=== PATIENT | female | born 1965 | race Caucasian/White ===

== ENCOUNTER → 2016-12-22 17:08 | Outpatient (CLI) | payer MEDICARE ==
[~2016-12-22 17:08] MED LIST: ADVAIR 250/501 DISK INH; ASPIRIN81 MG PO; BAYER CHEWABLE81 MG PO; CLOZAPINE200 MG PO; CLOZARIL100 MG PO; COMBIVENT RESPIM4 GM INH; CYCLOBENZAPRINE10 MG PO; DETROL LA4 MG PO; GLUCOPHAGE1000 MG PO; HUMALOG 30100 UNITS/; HYDROCODON-ACE1 EAC7 PO; HYDROCODONE-APA1 TAB PO; IBUPROFEN800 MG PO; INSTA-GLUCOSE31 GM PO; INVOKANA100 MG PO; IPRAT-ALBUT 0.5-3 ML; IPRAT-ALBUT 0.5-3 ML UPD; KADIAN20 MG PO; KLONOPIN1 MG PO; LANOXIN250 MCG PO; LANTUS INSULIN10 ML SC; LANTUS INSULIN10 ML SQ; LEXAPRO10 MG PO; LIPITOR40 MG PO; LISINOPRIL10 MG PO; LOPRESSOR25 MG PO; METOPROLOL TART50 MG PO; NEURONTIN 300300 MG PO; PEPCID20 MG PO; PLAVIX75 MG PO; PREDNISONE20 MG PO; PRILOSEC20 MG PO; PROAIR HFA8.5 GM INH; SYMBICORT 16010.2 GM INH; ULTRAM50 MG PO; WELLBUTRIN XL150 M1 PO
== END | disposition home or self-care (01) ==
LOC: D.MAMMO 11:00
DX: Z12.31 Encounter for screening mammogram for malignant neoplasm of breast (principal)

== ENCOUNTER 2017-01-12 12:08 | Emergency (ER) | payer MEDICARE | END 2017-01-12 13:51 | disposition home or self-care (01) | LOC: D.ER 12:08 | DX: J20.9 Acute bronchitis, unspecified (principal); J06.9 Acute upper respiratory infection, unspecified; J01.90 Acute sinusitis, unspecified; J45.909 Unspecified asthma, uncomplicated; E11.9 Type 2 diabetes mellitus without complications; F17.200 Nicotine dependence, unspecified, uncomplicated ==

== ENCOUNTER 2017-06-26 13:34 | Emergency (ER) | payer MEDICARE ==
[2017-06-26 15:13] LABS: BASOPHILS 0.1 % (0-2); EOSINOPHILS 3.7 % (0-7); HEMATOCRIT 39.1 % (36.0-48.0); HEMOGLOBIN 13.3 g/dL (12-16); IMMATURE GRANULOCYTES 0.3 % (0-5); LYMPHOCYTES 18.6 % (15-50); MCH 29.9 pg (26.0-34.0); MCV 87.9 fL (80.0-100.0); MEAN PLATELET VOLUME 9.1 fL (7.4-10.4); MONOCYTES 6.7 % (2-11); NEUTROPHILS 70.6 % (40-80); PLATELET COUNT 260 10x3/uL (130-400); RBC 4.45 10x6/uL (4.00-5.40); RDW 13.4 % (11.5-14.5); WBC 8.7 10x3/uL (4.8-10.8)
[2017-06-26 15:35] LABS: ALBUMIN 3.1 g/dL (3.4-5.0); ALKALINE PHOSPHATASE 143 U/L (46-116); ALT (SGPT) 44 U/L (10-68); BILIRUBIN - TOTAL 0.21 mg/dL (0.2-1.3); CALC OSMOLALITY 285 mosm/kg (275-300); CALCIUM 8.8 mg/dL (8.5-10.1); CARBON DIOXIDE 26.8 mmol/L (21.0-32.0); CHLORIDE - SERUM 101 mmol/L (98-107); CREATININE - SERUM 0.8 mg/dL (0.6-1.3); POTASSIUM - SERUM 3.6 mmol/L (3.5-5.1); PROTEIN - SERUM 7.8 g/dL (6.4-8.2); SODIUM 137 mmol/L (136-145); UREA NITROGEN 10 mg/dL (7-18); eGFR NON AFRICAN AMERICAN 79 mL/min (90-120)
[2017-06-26 15:38] LABS: GLUCOSE 329 mg/dL (74-106)
== END 2017-06-26 16:19 | disposition home or self-care (01) ==
LOC: D.ER 13:34
PROVIDERS: Emergency Medicine
DX: J44.1 Chronic obstructive pulmonary disease with (acute) exacerbation (principal); F17.200 Nicotine dependence, unspecified, uncomplicated

== ENCOUNTER 2017-11-03 21:03 | Emergency (ER) | payer MEDICARE ==
[2017-11-03 21:51] LABS: APPEARANCE CLEAR (CLEAR); BILIRUBIN NEGATIVE (NEGATIVE); COLOR YELLOW (YELLOW); GLUCOSE 1000 mg/dL (NEGATIVE); KETONE NEGATIVE (NEGATIVE); NITRITE NEGATIVE (NEGATIVE); PROTEIN NEGATIVE (NEGATIVE); UROBILINOGEN NORMAL (NORMAL)
[2017-11-03 22:06] LABS: BASOPHILS 0.4 % (0-2); EOSINOPHILS 5.1 % (0-7); HEMATOCRIT 35.7 % (36.0-48.0); HEMOGLOBIN 11.9 g/dL (12-16); IMMATURE GRANULOCYTES 0.2 % (0-5); LYMPHOCYTES 23.5 % (15-50); MCH 29.4 pg (26.0-34.0); MCHC 33.3 g/dL (31.0-37.0); MCV 88.1 fL (80.0-100.0); MEAN PLATELET VOLUME 9.2 fL (7.4-10.4); MONOCYTES 6.1 % (2-11); NEUTROPHILS 64.7 % (40-80); PLATELET COUNT 262 10x3/uL (130-400); RBC 4.05 10x6/uL (4.00-5.40); RDW 13.2 % (11.5-14.5); WBC 8.5 10x3/uL (4.8-10.8)
[2017-11-03 23:17] LABS: ALBUMIN 3.1 g/dL (3.4-5.0); ALKALINE PHOSPHATASE 125 U/L (46-116); ALT (SGPT) 29 U/L (10-68); BILIRUBIN - TOTAL 0.22 mg/dL (0.2-1.3); CALC OSMOLALITY 282 mosm/kg (275-300); CALCIUM 9.1 mg/dL (8.5-10.1); CARBON DIOXIDE 24.8 mmol/L (21.0-32.0); CHLORIDE - SERUM 101 mmol/L (98-107); CREATININE - SERUM 0.7 mg/dL (0.6-1.3); GLUCOSE 339 mg/dL (74-106); POTASSIUM - SERUM 3.6 mmol/L (3.5-5.1); PROTEIN - SERUM 7.4 g/dL (6.4-8.2); SODIUM 135 mmol/L (136-145); UREA NITROGEN 13 mg/dL (7-18); eGFR NON AFRICAN AMERICAN > 90 mL/min (90-120)
[2017-11-03 23:20] LABS: TROPONIN-I < 0.017 ng/mL (0.000-0.060)
== END 2017-11-04 00:13 | disposition home or self-care (01) ==
LOC: D.ER 21:03
PROVIDERS: Emergency Medicine
DX: J44.1 Chronic obstructive pulmonary disease with (acute) exacerbation (principal); R00.0 Tachycardia, unspecified

== ENCOUNTER → 2017-12-03 14:04 | Outpatient (CLI) | payer MEDICARE | END | disposition home or self-care (01) | LOC: D.RAD 14:04 | DX: M25.511 Pain in right shoulder (principal) ==

== ENCOUNTER 2018-01-13 22:55 | Emergency (ER) | payer MEDICARE ==
[2018-01-13 23:54] LABS: LYMPHOCYTES 17.1 % (15-50); MCH 27.8 pg (26.0-34.0); MCHC 33.3 g/dL (31.0-37.0); MCV 83.5 fL (80.0-100.0); MEAN PLATELET VOLUME 8.4 fL (7.4-10.4); NEUTROPHILS 72.1 % (40-80); PLATELET COUNT 237 10x3/uL (130-400); RBC 4.67 10x6/uL (4.00-5.40); RDW 13.5 % (11.5-14.5); WBC 8.4 10x3/uL (4.8-10.8)
[2018-01-13 23:55] LABS: APPEARANCE CLEAR (CLEAR); BILIRUBIN NEGATIVE (NEGATIVE); COLOR YELLOW (YELLOW); GLUCOSE 1000 mg/dL (NEGATIVE); KETONE NEGATIVE (NEGATIVE); NITRITE NEGATIVE (NEGATIVE); PROTEIN NEGATIVE (NEGATIVE); SPECIFIC GRAVITY 1.015 (1.005-1.020); UROBILINOGEN NORMAL (NORMAL)
[2018-01-14 00:01] LABS: ALBUMIN 3.5 g/dL (3.4-5.0); ALKALINE PHOSPHATASE 96 U/L (46-116); ALT (SGPT) 28 U/L (10-68); CALC OSMOLALITY 284 mosm/kg (275-300); CALCIUM 9.6 mg/dL (8.5-10.1); CARBON DIOXIDE 25.8 mmol/L (21.0-32.0); CHLORIDE - SERUM 102 mmol/L (98-107); CREATININE - SERUM 0.8 mg/dL (0.6-1.3); POTASSIUM - SERUM 4.1 mmol/L (3.5-5.1); PROTEIN - SERUM 7.6 g/dL (6.4-8.2); SODIUM 139 mmol/L (136-145); UREA NITROGEN 22 mg/dL (7-18); eGFR NON AFRICAN AMERICAN 79 mL/min (90-120)
[2018-01-14 00:03] LABS: GLUCOSE 168 mg/dL (74-106)
[2018-01-14 00:18] LABS: DIGOXIN < 0.20 ng/mL (0.90-2.00)
== END 2018-01-14 00:56 | disposition home or self-care (01) ==
LOC: D.ER 22:55
PROVIDERS: Emergency Medicine
DX: R55 Syncope and collapse (principal); F17.200 Nicotine dependence, unspecified, uncomplicated; R00.0 Tachycardia, unspecified

== ENCOUNTER → 2018-01-14 12:30 | Outpatient (CLI) | payer MEDICARE ==
[2018-01-14 13:33] LABS: HEMATOCRIT 39.5 % (36.0-48.0); LYMPHOCYTES 17.7 % (15-50); MCH 27.6 pg (26.0-34.0); MCHC 32.9 g/dL (31.0-37.0); MCV 83.9 fL (80.0-100.0); MEAN PLATELET VOLUME 8.6 fL (7.4-10.4); NEUTROPHILS 70.6 % (40-80); PLATELET COUNT 247 10x3/uL (130-400); RBC 4.71 10x6/uL (4.00-5.40); WBC 8.3 10x3/uL (4.8-10.8)
[2018-01-14 13:57] LABS: CHOL - HDL RATIO 5.5 ratio (2.3-4.1); LDL-HDL RATIO 3.2 ratio (1.5-3.5); THYROID STIMULATING HORMONE 0.96 uIU/mL (0.36-3.74)
[2018-01-15 10:17] LABS: C-PEPTIDE 4.7 ng/mL (1.1-4.4); VITAMIN D 25 HYDROXY 14.6 ng/mL (30.0-100.0)
== END | disposition home or self-care (01) ==
LOC: D.LAB 12:30
PROVIDERS: Family Medicine
DX: E11.9 Type 2 diabetes mellitus without complications (principal); Z00.00 Encounter for general adult medical examination without abnormal findings; I10 Essential (primary) hypertension; E66.9 Obesity, unspecified; E55.9 Vitamin D deficiency, unspecified; F20.9 Schizophrenia, unspecified; R19.7 Diarrhea, unspecified

== ENCOUNTER → 2018-03-11 09:59 | Outpatient (CLI) | payer MEDICARE ==
[2018-03-11 10:19] LABS: BASOPHILS 0.4 % (0-2); EOSINOPHILS 4.7 % (0-7); HEMATOCRIT 44.3 % (36.0-48.0); HEMOGLOBIN 14.2 g/dL (12-16); IMMATURE GRANULOCYTES 0.1 % (0-5); LYMPHOCYTES 22.9 % (15-50); MCHC 32.1 g/dL (31.0-37.0); MCV 90.6 fL (80.0-100.0); MEAN PLATELET VOLUME 10.1 fL (7.4-10.4); MONOCYTES 5.1 % (2-11); NEUTROPHILS 66.8 % (40-80); PLATELET COUNT 256 10x3/uL (130-400); RBC 4.89 10x6/uL (4.00-5.40); RDW 15.8 % (11.5-14.5)
[2018-03-11 10:34] LABS: ALBUMIN 3.4 g/dL (3.4-5.0); ANION GAP 19.9 mmol/L (8-16); BILIRUBIN - TOTAL 0.4 mg/dL (0.2-1.3); CALCIUM 9.3 mg/dL (8.5-10.1); MAGNESIUM - SERUM 2.2 mg/dL (1.8-2.4); POTASSIUM - SERUM 3.9 mmol/L (3.5-5.1); PROTEIN - SERUM 8.4 g/dL (6.4-8.2)
== END | disposition home or self-care (01) ==
LOC: D.LABREF 09:59
PROVIDERS: Family Medicine
DX: J44.9 Chronic obstructive pulmonary disease, unspecified (principal); E11.9 Type 2 diabetes mellitus without complications

== ENCOUNTER → 2018-08-19 14:49 | Outpatient (CLI) | payer MEDICARE ==
[2018-08-19 15:35] LABS: HEMATOCRIT 36.3 % (36.0-48.0); HEMOGLOBIN 12.2 g/dL (12-16); MCH 29.8 pg (26.0-34.0); MCHC 33.6 g/dL (31.0-37.0); MCV 88.8 fL (80.0-100.0); MEAN PLATELET VOLUME 8.6 fL (7.4-10.4); PLATELET COUNT 295 10x3/uL (130-400); RBC 4.09 10x6/uL (4.00-5.40); RDW 13.9 % (11.5-14.5)
[2018-08-19 15:55] LABS: BASOPHILS 1 % (0-2); EOSINOPHILS 3 % (0-7); LYMPHOCYTES 25 % (15-50); MONOCYTES 6 % (2-11); NEUTROPHILS 64 % (40-80); PLATELET ESTIMATE NORMAL
[2018-08-19 15:56] LABS: ALBUMIN 3.3 g/dL (3.4-5.0); ALKALINE PHOSPHATASE 96 U/L (46-116); ALT (SGPT) 20 U/L (10-68); BILIRUBIN - TOTAL 0.21 mg/dL (0.2-1.3); CALC OSMOLALITY 277 mosm/kg (275-300); CALCIUM 9.2 mg/dL (8.5-10.1); CARBON DIOXIDE 30.5 mmol/L (21.0-32.0); CHLORIDE - SERUM 98 mmol/L (98-107); CREATININE - SERUM 0.8 mg/dL (0.6-1.3); PLATELET MORPHOLOGY NORMAL PLT MORPH; POTASSIUM - SERUM 4.5 mmol/L (3.5-5.1); PROTEIN - SERUM 7.7 g/dL (6.4-8.2); SODIUM 135 mmol/L (136-145); THYROID STIMULATING HORMONE 1.18 uIU/mL (0.36-3.74); UREA NITROGEN 6 mg/dL (7-18); eGFR NON AFRICAN AMERICAN 79 mL/min (90-120)
[2018-08-19 16:10] LABS: GLUCOSE 279 mg/dL (74-106)
== END | disposition home or self-care (01) ==
LOC: D.LAB 14:49
PROVIDERS: Family Medicine
DX: R05 Cough (principal); M25.511 Pain in right shoulder; I25.10 Atherosclerotic heart disease of native coronary artery without angina pectoris; J44.9 Chronic obstructive pulmonary disease, unspecified; Z91.81 History of falling; E11.9 Type 2 diabetes mellitus without complications; R42 Dizziness and giddiness; M75.80 Other shoulder lesions, unspecified shoulder; E78.5 Hyperlipidemia, unspecified

== ENCOUNTER 2019-01-20 11:48 | Emergency (ER) | payer MEDICARE ==
[~2019-01-20] VITALS: Ht 162.6 cm; Wt 100.0 kg
[2019-01-20 11:54] VITALS: Ht 162.6 cm; Wt 100.0 kg
[2019-01-20 12:50] LABS: BASOPHILS 0.1 % (0-2); HEMATOCRIT 37.3 % (36.0-48.0); HEMOGLOBIN 12.2 g/dL (12-16); IMMATURE GRANULOCYTES 0.5 % (0-5); MCH 28.8 pg (26.0-34.0); MCHC 32.7 g/dL (31.0-37.0); MCV 88.2 fL (80.0-100.0); MEAN PLATELET VOLUME 9.1 fL (7.4-10.4); MONOCYTES 4.2 % (2-11); NEUTROPHILS 91.2 % (40-80); RBC 4.23 10x6/uL (4.00-5.40); RDW 14.3 % (11.5-14.5); WBC 10.4 10x3/uL (4.8-10.8)
[2019-01-20 12:52] LABS: PLATELET COUNT 229 10x3/uL (130-400)
[2019-01-20 13:06] LABS: ALBUMIN 3.2 g/dL (3.4-5.0); ANION GAP 11.1 mmol/L (8-16); BILIRUBIN - TOTAL 0.27 mg/dL (0.2-1.3); CALCIUM 8.4 mg/dL (8.5-10.1); CARBON DIOXIDE 27.8 mmol/L (21.0-32.0); CREATININE - SERUM 1.4 mg/dL (0.6-1.3); POTASSIUM - SERUM 3.9 mmol/L (3.5-5.1); PROTEIN - SERUM 7.6 g/dL (6.4-8.2)
[2019-01-20 13:15] LABS: THYROID STIMULATING HORMONE 0.48 uIU/mL (0.36-3.74)
[2019-01-20 13:46] LABS: APPEARANCE HAZY (CLEAR); BILIRUBIN NEGATIVE (NEGATIVE); COLOR YELLOW (YELLOW); GLUCOSE 500 mg/dL (NEGATIVE); KETONE NEGATIVE (NEGATIVE); NITRITE POSITIVE (NEGATIVE); PROTEIN TRACE mg/dL (NEGATIVE); UROBILINOGEN NORMAL (NORMAL)
[2019-01-20 13:47] LABS: RED CELLS - URINE 0-5 /hpf (0-5)
[2019-01-20 13:48] LABS: HYALINE CAST 0-5 /lpf (NONE SEEN)
[2019-01-20 13:49] LABS: BACTERIA MODERATE /hpf (NONE SEEN)
[2019-01-20] MEDS ORDERED: OMNICEF300 MG PO (16:20)
[2019-01-20 18:05] VITALS: BP 145/65
== END 2019-01-20 18:05 | disposition home or self-care (01) ==
LOC: D.ER 11:48
PROVIDERS: Family Medicine
DX: N39.0 Urinary tract infection, site not specified (principal); E86.0 Dehydration; R42 Dizziness and giddiness; F17.290 Nicotine dependence, other tobacco product, uncomplicated; Z86.73 Personal history of transient ischemic attack (TIA), and cerebral infarction without residual deficits; E11.9 Type 2 diabetes mellitus without complications; J44.9 Chronic obstructive pulmonary disease, unspecified; M19.90 Unspecified osteoarthritis, unspecified site; W08.XXXA Fall from other furniture, initial encounter

== ENCOUNTER 2019-02-10 12:58 | Inpatient (IN) | payer MEDICARE ==
[~2019-02-10 12:58] MED LIST changes: +OMNICEF300 MG PO
[2019-02-10] MEDS ORDERED: DETROL LA2 MG PO (13:05)
[2019-02-10 13:36] LABS: BASOPHILS 0.3 % (0-2); EOSINOPHILS 1.5 % (0-7); HEMATOCRIT 37.4 % (36.0-48.0); HEMOGLOBIN 12.3 g/dL (12-16); IMMATURE GRANULOCYTES 0.2 % (0-5); LYMPHOCYTES 13.9 % (15-50); MCH 28.4 pg (26.0-34.0); MCHC 32.9 g/dL (31.0-37.0); MCV 86.4 fL (80.0-100.0); MEAN PLATELET VOLUME 8.7 fL (7.4-10.4); MONOCYTES 6.5 % (2-11); NEUTROPHILS 77.6 % (40-80); PLATELET COUNT 238 10x3/uL (130-400); RBC 4.33 10x6/uL (4.00-5.40); RDW 14.4 % (11.5-14.5); WBC 11.6 10x3/uL (4.8-10.8)
[2019-02-10 13:50] LABS: ALBUMIN 2.8 g/dL (3.4-5.0); ALKALINE PHOSPHATASE 94 U/L (46-116); ALT (SGPT) 19 U/L (10-68); BILIRUBIN - TOTAL 0.27 mg/dL (0.2-1.3); CALC OSMOLALITY 286 mosm/kg (275-300); CALCIUM 8.5 mg/dL (8.5-10.1); CHLORIDE - SERUM 102 mmol/L (98-107); CREATININE - SERUM 0.9 mg/dL (0.6-1.3); GLUCOSE 237 mg/dL (74-106); POTASSIUM - SERUM 3.1 mmol/L (3.5-5.1); PROTEIN - SERUM 7.8 g/dL (6.4-8.2); SODIUM 141 mmol/L (136-145); UREA NITROGEN 8 mg/dL (7-18); eGFR NON AFRICAN AMERICAN 69 mL/min (90-120)
[2019-02-10 14:02] LABS: CKMB 1.8 U/L (0.0-3.6); CREATINE KINASE 182 UL (21-215); PRO BNP 155 pg/mL (0-125)
[2019-02-10 14:14] VITALS: BP 121/51
[2019-02-10 14:16] LABS: TROPONIN-I < 0.017 ng/mL (0.000-0.060)
[2019-02-10 18:19] VITALS: BP 169/79; BMI 37.8
[2019-02-10 20:52] VITALS: BP 166/78
[2019-02-11 01:02] VITALS: BP 147/74
[2019-02-11 04:06] LABS: BASOPHILS 0.1 % (0-2); EOSINOPHILS 0 % (0-7); HEMATOCRIT 37.6 % (36.0-48.0); HEMOGLOBIN 12.8 g/dL (12-16); IMMATURE GRANULOCYTES 0.3 % (0-5); MCH 28.8 pg (26.0-34.0); MCV 84.5 fL (80.0-100.0); MEAN PLATELET VOLUME 8.7 fL (7.4-10.4); MONOCYTES 1.3 % (2-11); NEUTROPHILS 89.3 % (40-80); PLATELET COUNT 253 10x3/uL (130-400); RBC 4.45 10x6/uL (4.00-5.40); RDW 14.3 % (11.5-14.5); WBC 11.2 10x3/uL (4.8-10.8)
[2019-02-11 04:41] LABS: ALBUMIN 2.6 g/dL (3.4-5.0); ALKALINE PHOSPHATASE 99 U/L (46-116); ALT (SGPT) 22 U/L (10-68); BILIRUBIN - TOTAL 0.21 mg/dL (0.2-1.3); CALC OSMOLALITY 290 mosm/kg (275-300); CALCIUM 8.4 mg/dL (8.5-10.1); CARBON DIOXIDE 30.6 mmol/L (21.0-32.0); CHLORIDE - SERUM 104 mmol/L (98-107); CHOL - HDL RATIO 3.3 ratio (2.3-4.1); CHOLESTEROL, TOTAL 152 mg/dL (0-200); CREATININE - SERUM 0.7 mg/dL (0.6-1.3); GLUCOSE 266 mg/dL (74-106); HDL CHOLESTEROL 46 mg/dL (32-96); LDL CHOLESTEROL 90 mg/dL (0-100); PROTEIN - SERUM 7.8 g/dL (6.4-8.2); SODIUM 142 mmol/L (136-145); THYROID STIMULATING HORMONE 0.34 uIU/mL (0.36-3.74); TRIGLYCERIDE 84 mg/dL (30-200); UREA NITROGEN 9 mg/dL (7-18); eGFR NON AFRICAN AMERICAN > 90 mL/min (90-120)
[2019-02-11 04:54] VITALS: BP 137/72
[2019-02-11 08:44] VITALS: BP 143/74
[2019-02-11 13:09] VITALS: BMI 37.7
[2019-02-11 16:17] VITALS: BP 138/76
[2019-02-11 20:00] VITALS: BP 109/76
[2019-02-11 22:19] LABS: EOS BF 2 %; MACROPHAGES BF 52 %; MESOTHELIALS BF 8 %; NEUT - BF 14 %
[2019-02-11 22:22] LABS: EOS BF 34 %; MACROPHAGES BF 33 %; MESOTHELIALS BF 6 %; NEUT - BF 12 %
[2019-02-12] VITALS: BP 110/68
[2019-02-12 03:00] VITALS: BP 115/56
[2019-02-12 09:50] VITALS: BP 153/87
[2019-02-12 14:41] VITALS: BP 113/77
[2019-02-12 17:12] VITALS: BP 149/88
[2019-02-12 19:37] VITALS: BP 169/91
[2019-02-13 00:56] VITALS: BP 150/73
[2019-02-13 05:52] VITALS: BP 154/90
[2019-02-13 08:21] VITALS: BP 148/82
[2019-02-13 13:06] LABS: ACID FAST SMEAR Negative (()); AFB SPECIMEN PROCESSING Concentration (())
[2019-02-13 14:23] VITALS: BP 101/68
[2019-02-13 15:55] VITALS: BP 125/68
[2019-02-13 20:00] VITALS: BP 167/83
[2019-02-14] VITALS: BP 136/69
[2019-02-14 03:00] VITALS: BP 130/71
[2019-02-14 05:05] LABS: HEMATOCRIT 34.4 % (36.0-48.0); HEMOGLOBIN 11.8 g/dL (12-16); LYMPHOCYTES 11.4 % (15-50); MCH 29.3 pg (26.0-34.0); MCHC 34.3 g/dL (31.0-37.0); MCV 85.4 fL (80.0-100.0); MEAN PLATELET VOLUME 8.3 fL (7.4-10.4); NEUTROPHILS 84.4 % (40-80); PLATELET COUNT 278 10x3/uL (130-400); RBC 4.03 10x6/uL (4.00-5.40); RDW 14.5 % (11.5-14.5); WBC 13.7 10x3/uL (4.8-10.8)
[2019-02-14] MEDS ORDERED: Xarelto PO (08:33)
[2019-02-14] MEDS ORDERED: LEVAQUIN750 MG PO (08:33)
[2019-02-14] MEDS ORDERED: ATROVENT 0.02%2.5 ML UPD (08:33)
[2019-02-14] MEDS ORDERED: ASPIRIN81 MG PO (08:34)
[2019-02-14] MEDS ORDERED: INVOKANA100 MG PO (08:35)
[2019-02-14] MEDS ORDERED: FLORAJEN3 CAPS460 MG PT (08:35)
[2019-02-14] MEDS ORDERED: SENNA8.6 MG PO (08:36)
[2019-02-14 09:19] VITALS: BP 193/101
--- NOTE | 2019-02-14 10:01 | MORECARE ---
CASE MANAGEMENT DISCHARGE SUMMARY PATIENT: ASAD CHO UNIT: [id number] ADM DATE: 02/10/19 AGE: 53 : 63 SEX: F ROOM/BED: D.2218 AUTHOR: MARLENA WALSH PHYSICIAN: REFERRING PHYSICIAN: BERT DICKINSON MD DATE OF SERVICE: 02/14/19 Discharge Plan Patient Name: ASAD CHO Facility: [facility]:[place] : 1965 Planned Disposition: Home with Home Health Anticipated Discharge Date: Discharge Date: Expected LOS: Initial Reviewer: [email or web address] Initial Review Date: 02/10/2019 Generated: 02/14/19 11:01 am DCPIA - Discharge Planning Initial Assessment Updated by [email or web address]: Lucretia Dean on 02/14/19 9:58 am * Is the patient Alert and Oriented? Yes * How many steps to enter\exit or inside your home? elevator * PCP Kelly * [facility] * Preadmission Environment Home Alone * ADLs Independent * Equipment Glucometer Grab Bars Nebulizer Rolling Walker * List name and contact numbers for known caregivers / representatives who currently or will assist patient after discharge: Randolph Rodriguez * Verbal permission to speak to the caregivers and representatives has been obtained from the patient. N/A * Community resources currently utilized Home Health * Please name any agencies selected above. Current with [place] * Additional services required to return to the preadmission environment? No * Can the patient safely return to the preadmission environment? Yes * Has this patient been hospitalized within the prior 30 days at any hospital? Yes Coverage Notice Reviewer: [email or web address] - Lucretia Dean Notice Issued Date-Time: 02/14/2019 9:50 Notice Type: IM Discharge Notice Notice Delivered To: Patient Relationship to Patient: Cage Loader Name: Delivery Method: HAND - Hand Delivered Jelly Days: Prior Verbal Notification: Recipient Understood Notice: Yes Recipient Signature: Yes Med Rec Note Co-signed by Attending: Coverage Notice Comment: Patient Name: ASAD CHO Page [id number] at 1001 All edits/amendments must be made on the electronic document DICTATION DATE: 02/14/19999 [employer] ED TEACHER: DM 02/14/19 1000 RPT#: [id number] DC DATE: STATUS: ADM IN [facility] [address] [place] [address] END OF REPORT
--- NOTE | 2019-02-14 10:08 | MORECARE ---
CASE MANAGEMENT DISCHARGE SUMMARY PATIENT: ASAD CHO UNIT: [id number] ADM DATE: 02/10/19 AGE: 53 : 63 SEX: F ROOM/BED: D.2218 AUTHOR: MARLENA WALSH PHYSICIAN: REFERRING PHYSICIAN: BERT DICKINSON MD DATE OF SERVICE: 02/14/19 Discharge Plan Patient Name: ASAD CHO Facility: [facility]:[place] : 1965 Planned Disposition: Home with Home Health Anticipated Discharge Date: Discharge Date: Expected LOS: Initial Reviewer: [email or web address] Initial Review Date: 02/10/2019 Generated: 02/14/19 11:08 am Comments DCP- Discharge Planning Updated by [id number]: Lucretia Dena on 02/14/19 9:[address] Patient Name: ASAD CHO Admission Status: ER Accout number: [id number] Admission Date: 02-10-2019 : 1965 Admission Diagnosis: Attending: BERT DICKINSON Current LOS: 4 Anticipated DC Date: Planned Disposition: Home with Home Health Primary Insurance: MEDICARE A & B Discharge Planning Comments: Cm met with patient to assess discharge planning needs. Patient stated that she lives independent at home where she has help by her son and friend. Her stock roller will be taking her home today. She has a Nebulizer, walker, grab bars in shower at home. There is also an elevator at home. She is current with [facility]. She states her home is safe to return. IMM served and explained. Patient will be discharging home today. CM to follow as needed Outside Installation Machinist: Lucretia Dean DCPIA - Discharge Planning Initial Assessment Updated by [email or web address]: Lucretia Dean on 02/14/19 9:58 am * Is the patient Alert and Oriented? Yes * How many steps to enter\exit or inside your home? elevator * PCP Kelly * Pharmacy [facility] * Preadmission Environment Home Alone * ADLs Independent * Equipment Glucometer Grab Bars Nebulizer Rolling Walker * List name and contact numbers for known caregivers / representatives who currently or will assist patient after discharge: Randolph Rodriguez * Verbal permission to speak to the caregivers and representatives has been obtained from the patient. N/A * Community resources currently utilized Home Health * Please name any agencies selected above. Current with [facility] * Additional services required to return to the preadmission environment? No * Can the patient safely return to the preadmission environment? Yes * Has this patient been hospitalized within the prior 30 days at any hospital? Yes Coverage Notice Reviewer: [email or web address] Albina Dean Notice Issued Date-Time: 02/14/2019 9:50 Notice Type: IM Discharge Notice Notice Delivered To: Patient Relationship to Patient: Media Relations Director Name: Delivery Method: HAND - Hand Delivered Jelly Days: Prior Verbal Notification: Recipient Understood Notice: Yes Recipient Signature: Yes Med Rec Note Co-signed by Attending: Coverage Notice Comment: Last DP export: 02/14/19 9:01 a Patient Name: ASAD CHO Page [id number] at 1008 All edits/amendments must be made on the electronic document DICTATION DATE: 02/14/19 1008 MANAGER TRUCK: GET 02/14/19 1008 RPT#: [id number] DC DATE: STATUS: ADM IN [facility] [address] [place] [address] END OF REPORT
[2019-02-14 14:09] LABS: FUNGUS STAIN Final report (())
--- NOTE | 2019-02-14 15:51 | MORECARE ---
CASE MANAGEMENT DISCHARGE SUMMARY PATIENT: ASAD CHO UNIT: [id number] ADM DATE: 02/10/19 AGE: 53 : 63 SEX: F ROOM/BED: D.2218 AUTHOR: MARLENA WALSH PHYSICIAN: REFERRING PHYSICIAN: BERT DICKINSON MD DATE OF SERVICE: 02/14/19 Discharge Plan Patient Name: ASAD CHO Facility: [facility]:[place] : 1965 Planned Disposition: Home with Home Health Anticipated Discharge Date: Discharge Date: 02/14/2019 Expected LOS: Initial Reviewer: [email or web address] Initial Review Date: 02/10/2019 Generated: 02/14/19 4:51 pm Comments DCP- Discharge Planning Updated by [email or web address]: Lucretia Dean on 02/14/19 9:[address] Patient Name: ASAD CHO Admission Status: ER Accout number: [id number] Admission Date: 02-10-2019 : 1965 Admission Diagnosis: Attending: BERT DICKINSON Current LOS: 4 Anticipated DC Date: Planned Disposition: Home with Home Health Primary Insurance: MEDICARE A & B Discharge Planning Comments: Cm met with patient to assess discharge planning needs. Patient stated that she lives independent at home where she has help by her son and friend. Her certified detention deputy will be taking her home today. She has a Nebulizer, walker, grab bars in shower at home. There is also an elevator at home. She is current with [facility]. She states her home is safe to return. IMM served and explained. Patient will be discharging home today. CM to follow as needed Surgeon'S Assistant: Lucretia Dean DCPIA - Discharge Planning Initial Assessment Updated by [email or web address]: Lucretia Dean on 02/14/19 9:58 am * Is the patient Alert and Oriented? Yes * How many steps to enter\exit or inside your home? elevator * PCP Kelly * Pharmacy [facility] * Preadmission Environment Home Alone * ADLs Independent * Equipment Glucometer Grab Bars Nebulizer Rolling Walker * List name and contact numbers for known caregivers / representatives who currently or will assist patient after discharge: Randolph Rodriguez * Verbal permission to speak to the caregivers and representatives has been obtained from the patient. N/A * Community resources currently utilized Home Health * Please name any agencies selected above. Current with [facility] * Additional services required to return to the preadmission environment? No * Can the patient safely return to the preadmission environment? Yes * Has this patient been hospitalized within the prior 30 days at any hospital? Yes External Providers External Provider: [facility] Next Contact Date: Service Request Date: Service Type: Resolution: Reviewer: Comments: Coverage Notice Reviewer: [email or web address] Albina Dean Notice Issued Date-Time: 02/14/2019 9:50 Notice Type: IM Discharge Notice Notice Delivered To: Patient Relationship to Patient: Pattern Duplicator Name: Delivery Method: HAND - Hand Delivered Jelly Days: Prior Verbal Notification: Recipient Understood Notice: Yes Recipient Signature: Yes Med Rec Note Co-signed by Attending: Coverage Notice Comment: Last DP export: 02/14/19 9:08 a Patient Name: ASAD CHO Page [id number] at 1551 All edits/amendments must be made on the electronic document DICTATION DATE: 02/14/19 1551 CUSTOMER CARE VOICE CONSULTANT: GET 02/14/19 1551 RPT#: [id number] DC DATE:02/14/19 STATUS: DIS IN [facility] [address] [place] [address] END OF REPORT
== END 2019-02-14 12:54 | disposition home health service (06) | DRG 190 ==
LOC: D.ER 12:58 → D.EDHOLD 14:40 → D.MS 15:16
PROVIDERS: Emergency Medicine; Internal Medicine Pulmonary Disease; ADMIT Family Medicine
PROC: 0B9J8ZX Drainage of Left Lower Lung Lobe, Via Natural or Artificial Opening Endoscopic, Diagnostic (ICD-10-PCS; principal; 2019-02-10)
PROC: 0B9F8ZX Drainage of Right Lower Lung Lobe, Via Natural or Artificial Opening Endoscopic, Diagnostic (ICD-10-PCS; 2019-02-10)
DX: J44.0 Chronic obstructive pulmonary disease with (acute) lower respiratory infection (principal); J18.9 Pneumonia, unspecified organism; J44.1 Chronic obstructive pulmonary disease with (acute) exacerbation; I10 Essential (primary) hypertension; F25.8 Other schizoaffective disorders; E66.01 Morbid (severe) obesity due to excess calories; E11.9 Type 2 diabetes mellitus without complications; I25.10 Atherosclerotic heart disease of native coronary artery without angina pectoris; K21.9 Gastro-esophageal reflux disease without esophagitis

== ENCOUNTER → 2019-03-19 16:17 | Outpatient (CLI) | payer MEDICARE ==
[~2019-03-19 16:17] MED LIST changes: +ATROVENT 0.02%2.5 ML UPD; +DETROL LA2 MG PO; +FLORAJEN3 CAPS460 MG PT; +LEVAQUIN750 MG PO; +SENNA8.6 MG PO; +Xarelto PO
[2019-03-19 16:45] LABS: BASOPHILS 0.2 % (0-2); EOSINOPHILS 1.5 % (0-7); HEMATOCRIT 36.4 % (36.0-48.0); IMMATURE GRANULOCYTES 0.3 % (0-5); MCH 28.5 pg (26.0-34.0); MCV 86.5 fL (80.0-100.0); MEAN PLATELET VOLUME 9.8 fL (7.4-10.4); MONOCYTES 7.3 % (2-11); NEUTROPHILS 72.7 % (40-80); PLATELET COUNT 288 10x3/uL (130-400); RBC 4.21 10x6/uL (4.00-5.40); RDW 15.6 % (11.5-14.5); WBC 9.7 10x3/uL (4.8-10.8)
[2019-03-19 16:48] LABS: CALC OSMOLALITY 289 mosm/kg (275-300); CALCIUM 9.2 mg/dL (8.5-10.1); CARBON DIOXIDE 23.9 mmol/L (21.0-32.0); CHLORIDE - SERUM 102 mmol/L (98-107); CREATININE - SERUM 0.8 mg/dL (0.6-1.3); GLUCOSE 274 mg/dL (74-106); POTASSIUM - SERUM 3.7 mmol/L (3.5-5.1); SODIUM 139 mmol/L (136-145); UREA NITROGEN 18 mg/dL (7-18); eGFR NON AFRICAN AMERICAN 79 mL/min (90-120)
== END | disposition home or self-care (01) ==
LOC: D.LABREF 16:17
PROVIDERS: ATTEND Family Medicine
DX: R11.2 Nausea with vomiting, unspecified (principal)

== ENCOUNTER 2019-04-28 16:29 | Emergency (ER) | payer MEDICARE ==
[2019-04-28 16:42] VITALS: BMI 37.5
[2019-04-28 17:25] LABS: BASOPHILS 0.2 % (0-2); EOSINOPHILS 1.6 % (0-7); HEMATOCRIT 36.1 % (36.0-48.0); HEMOGLOBIN 12.1 g/dL (12-16); IMMATURE GRANULOCYTES 0.3 % (0-5); LYMPHOCYTES 20.9 % (15-50); MCH 28.3 pg (26.0-34.0); MCHC 33.5 g/dL (31.0-37.0); MCV 84.5 fL (80.0-100.0); MEAN PLATELET VOLUME 8.8 fL (7.4-10.4); MONOCYTES 6.9 % (2-11); NEUTROPHILS 70.1 % (40-80); PLATELET COUNT 264 10x3/uL (130-400); RBC 4.27 10x6/uL (4.00-5.40); RDW 15.6 % (11.5-14.5); WBC 11.8 10x3/uL (4.8-10.8)
[2019-04-28 17:59] LABS: ALBUMIN 3.2 g/dL (3.4-5.0); ALKALINE PHOSPHATASE 93 U/L (46-116); ALT (SGPT) 23 U/L (10-68); BILIRUBIN - TOTAL 0.31 mg/dL (0.2-1.3); CALC OSMOLALITY 278 mosm/kg (275-300); CARBON DIOXIDE 30.4 mmol/L (21.0-32.0); CHLORIDE - SERUM 102 mmol/L (98-107); CREATININE - SERUM 0.7 mg/dL (0.6-1.3); POTASSIUM - SERUM 3.7 mmol/L (3.5-5.1); PROTEIN - SERUM 7.6 g/dL (6.4-8.2); SODIUM 140 mmol/L (136-145); UREA NITROGEN 9 mg/dL (7-18); eGFR NON AFRICAN AMERICAN > 90 mL/min (90-120)
[2019-04-28 18:02] LABS: GLUCOSE 119 mg/dL (74-106)
[2019-04-28 19:04] LABS: APPEARANCE CLEAR (CLEAR); BILIRUBIN NEGATIVE (NEGATIVE); COLOR YELLOW (YELLOW); GLUCOSE 50 mg/dL (NEGATIVE); KETONE NEGATIVE (NEGATIVE); NITRITE NEGATIVE (NEGATIVE); PROTEIN TRACE mg/dL (NEGATIVE); UROBILINOGEN NORMAL (NORMAL)
[2019-04-28 19:05] LABS: BACTERIA MODERATE /hpf (NONE SEEN); EPITHELIAL CELLS 0-5 /hpf (0-5); RED CELLS - URINE 0-5 /hpf (0-5); WHITE CELLS - URINE 0-5 /hpf (0-5)
[2019-04-28] MEDS ORDERED: PREDNISONE20 MG PO (20:29)
[2019-04-28] MEDS ORDERED: ALBUTEROL SULF8.5 GM INH (20:29)
[2019-04-28] MEDS ORDERED: VIBRAMYCIN 100100 MG PO (20:30)
[2019-04-28 20:50] VITALS: BP 153/86
== END 2019-04-28 20:50 | disposition home or self-care (01) ==
LOC: D.ER 16:29
PROVIDERS: Family Medicine
DX: J44.1 Chronic obstructive pulmonary disease with (acute) exacerbation (principal); E11.9 Type 2 diabetes mellitus without complications; I25.10 Atherosclerotic heart disease of native coronary artery without angina pectoris; K21.9 Gastro-esophageal reflux disease without esophagitis

== ENCOUNTER 2019-07-06 12:35 | Emergency (ER) | payer MEDICARE ==
[~2019-07-06] VITALS: Ht 162.6 cm; Wt 95.0 kg
[~2019-07-06 12:35] MED LIST changes: +ALBUTEROL SULF8.5 GM INH; +VIBRAMYCIN 100100 MG PO
[2019-07-06 12:52] VITALS: Ht 162.6 cm; Wt 95.0 kg
[2019-07-06 13:24] LABS: BASOPHILS 0.2 % (0-2); EOSINOPHILS 1.8 % (0-7); HEMATOCRIT 39.3 % (36.0-48.0); HEMOGLOBIN 13.3 g/dL (12-16); IMMATURE GRANULOCYTES 0.2 % (0-5); MCH 28.5 pg (26.0-34.0); MCHC 33.8 g/dL (31.0-37.0); MCV 84.2 fL (80.0-100.0); MONOCYTES 6.2 % (2-11); NEUTROPHILS 81.6 % (40-80); PLATELET COUNT 239 10x3/uL (130-400); RBC 4.67 10x6/uL (4.00-5.40); RDW 14.5 % (11.5-14.5); WBC 12.3 10x3/uL (4.8-10.8)
[2019-07-06 13:41] LABS: ALBUMIN 3.3 g/dL (3.4-5.0); ANION GAP 13.4 mmol/L (8-16); BILIRUBIN - TOTAL 0.3 mg/dL (0.2-1.3); CARBON DIOXIDE 26.6 mmol/L (21.0-32.0)
[2019-07-06 14:12] LABS: THYROID STIMULATING HORMONE 1.51 uIU/mL (0.36-3.74)
[2019-07-06] MEDS ORDERED: FUROSEMIDE20 MG PO (15:13)
[2019-07-06 19:51] VITALS: BP 137/77
[2019-07-07] MEDS ORDERED: FUROSEMIDE20 MG PO (16:05)
[2019-07-07] MEDS ORDERED: ADVAIR HFA 45/212 GM INH (20:48)
== END 2019-07-06 16:10 | disposition home or self-care (01) ==
LOC: D.ER 12:35
PROVIDERS: Emergency Medicine
DX: R06.00 Dyspnea, unspecified (principal); E11.65 Type 2 diabetes mellitus with hyperglycemia; I10 Essential (primary) hypertension

== ENCOUNTER 2019-07-07 15:51 | Inpatient (IN) | payer MEDICARE ==
[~2019-07-07] VITALS: Ht 162.6 cm; Wt 94.8 kg
[~2019-07-07 15:51] MED LIST changes: +FUROSEMIDE20 MG PO
[2019-07-07] MEDS ORDERED: FUROSEMIDE20 MG PO (16:05)
--- NOTE | 2019-07-07 16:05 | NUR ---
PT TO ER #14 VIA WC. HS NOTIFIED OF NEED FOR MH EVAL
--- NOTE | 2019-07-07 16:25 | NUR ---
RT AT BS FOR SVN
[2019-07-07 16:29] LABS: BASOPHILS 0.1 % (0-2); EOSINOPHILS 0.7 % (0-7); HEMATOCRIT 36.7 % (36.0-48.0); HEMOGLOBIN 12.4 g/dL (12-16); IMMATURE GRANULOCYTES 0.2 % (0-5); LYMPHOCYTES 6.7 % (15-50); MCH 28.1 pg (26.0-34.0); MCHC 33.8 g/dL (31.0-37.0); MEAN PLATELET VOLUME 8.8 fL (7.4-10.4); MONOCYTES 4.9 % (2-11); NEUTROPHILS 87.4 % (40-80); PLATELET COUNT 255 10x3/uL (130-400); RBC 4.42 10x6/uL (4.00-5.40); RDW 14.5 % (11.5-14.5); WBC 14.9 10x3/uL (4.8-10.8)
--- NOTE | 2019-07-07 16:35 | NUR ---
MH NEIGHBORHOOD PLANNER AT
[2019-07-07 16:37] LABS: INR 1.01 (0.85-1.17); PROTIME 12.8 SECONDS (11.6-15.0)
[2019-07-07 16:43] LABS: ALBUMIN 3.2 g/dL (3.4-5.0); ALKALINE PHOSPHATASE 111 U/L (46-116); ALT (SGPT) 20 U/L (10-68); BILIRUBIN - TOTAL 0.31 mg/dL (0.2-1.3); CALC OSMOLALITY 287 mosm/kg (275-300); CALCIUM 8.5 mg/dL (8.5-10.1); CARBON DIOXIDE 27.8 mmol/L (21.0-32.0); CHLORIDE - SERUM 102 mmol/L (98-107); PROTEIN - SERUM 7.8 g/dL (6.4-8.2); SODIUM 137 mmol/L (136-145); UREA NITROGEN 10 mg/dL (7-18); eGFR NON AFRICAN AMERICAN 61 mL/min (90-120)
[2019-07-07 16:46] VITALS: BP 139/81
[2019-07-07 16:46] LABS: GLUCOSE 362 mg/dL (74-106)
[2019-07-07 16:54] LABS: CREATINE KINASE 105 UL (21-215); TROPONIN-I < 0.017 ng/mL (0.000-0.060)
--- NOTE | 2019-07-07 16:55 | NUR ---
According to the suicide risk assessment the patient rates a high score which requires her to have a 1:1 observation.
--- NOTE | 2019-07-07 17:18 | NUR ---
PT CARE ASSUMED AT THIS TIME, PT IS MOVED TO SAFE ROOM 18, ALTHOUGH THE RETRACTING WALL IS UP DUE TO NEED FOR PATIENT MONITORING. PT IS AAO X 4, RESPIRATIONS EVEN AND UNLABORED, PULSES EQUAL AND STRONG. PT IS IN A HOSPITAL GOWN, BELONGINGS SECURED BEHIND NURSES STATION, WILL MONITOR.
[2019-07-07 18:21] LABS: APPEARANCE CLEAR (CLEAR); BILIRUBIN NEGATIVE (NEGATIVE); COLOR YELLOW (YELLOW); GLUCOSE 1000 mg/dL (NEGATIVE); KETONE NEGATIVE (NEGATIVE); NITRITE NEGATIVE (NEGATIVE); PROTEIN NEGATIVE (NEGATIVE); SPECIFIC GRAVITY 1.015 (1.005-1.020); UROBILINOGEN NORMAL (NORMAL)
[2019-07-07 18:31] LABS: UDS - AMPHET NEGATIVE QUAL (NEGATIVE); UDS - BARB NEGATIVE QUAL (NEGATIVE); UDS - BENZO NEGATIVE QUAL (NEGATIVE); UDS - COCAINE NEGATIVE QUAL (NEGATIVE); UDS - OPIATE POSITIVE QUAL (NEGATIVE); UDS - PCP NEGATIVE QUAL (NEGATIVE); UDS - THC NEGATIVE QUAL (NEGATIVE)
--- NOTE | 2019-07-07 18:56 | NUR ---
HAND-OFF REPORT RECEIVED FROM MARY RESTREPO.
[2019-07-07] MEDS ORDERED: ADVAIR HFA 45/212 GM INH (20:48)
[2019-07-07 21:23] VITALS: BP 158/77
[2019-07-08] VITALS (7 sets, daily range): BP systolic 136–162; BP diastolic 71–83; BMI 35.9
[2019-07-08 06:31] LABS: BASOPHILS 0.1 % (0-2); EOSINOPHILS 0 % (0-7); HEMATOCRIT 36.3 % (36.0-48.0); HEMOGLOBIN 12.3 g/dL (12-16); IMMATURE GRANULOCYTES 0.2 % (0-5); LYMPHOCYTES 5.3 % (15-50); MCH 28.1 pg (26.0-34.0); MCHC 33.9 g/dL (31.0-37.0); MCV 83.1 fL (80.0-100.0); MEAN PLATELET VOLUME 9.2 fL (7.4-10.4); MONOCYTES 0.8 % (2-11); NEUTROPHILS 93.6 % (40-80); PLATELET COUNT 239 10x3/uL (130-400); RBC 4.37 10x6/uL (4.00-5.40); RDW 14.6 % (11.5-14.5); WBC 12.5 10x3/uL (4.8-10.8)
[2019-07-08 06:46] LABS: CALCIUM 8.4 mg/dL (8.5-10.1); CARBON DIOXIDE 26.2 mmol/L (21.0-32.0); CHLORIDE - SERUM 107 mmol/L (98-107); SODIUM 143 mmol/L (136-145); UREA NITROGEN 11 mg/dL (7-18)
[2019-07-08 06:49] LABS: CALC OSMOLALITY 293 mosm/kg (275-300); CREATININE - SERUM 0.7 mg/dL (0.6-1.3); GLUCOSE 273 mg/dL (74-106); eGFR NON AFRICAN AMERICAN > 90 mL/min (90-120)
--- NOTE | 2019-07-08 07:43 | NUR ---
PT LYING IN BED. EYES CLOSED. CHEST RISING AND FALLING. O2 AT 3L VIA NC. LEFT WRIST NS AT 100. SITTER IN HALLWAY. PT ON SUICIDE WATCH. BED LOW. CL IN REACH. WILL CONTINUE TO MONITOR.
--- NOTE | 2019-07-08 14:53 | NUR ---
I have reviewed this patient and I concur with the Shift Assessment completed by the Licensed Practical Nurse today this shift.
--- NOTE | 2019-07-08 16:06 | MORECARE ---
CASE MANAGEMENT DISCHARGE SUMMARY PATIENT: ASAD CHO UNIT: [id number] ADM DATE: 07/07/19 AGE: 54 : 63 SEX: F ROOM/BED: D.2132 AUTHOR: MARLENA WALSH PHYSICIAN: REFERRING PHYSICIAN: NEW POPE MD DATE OF SERVICE: 07/08/19 Discharge Plan Patient Name: AASD CHO Facility: [facility]:[place] : 1965 Planned Disposition: Home with Home Health Anticipated Discharge Date: Discharge Date: Expected LOS: Initial Reviewer: [email or web address] Initial Review Date: 07/08/2019 Generated: 07/08/19 5:06 pm DCPIA - Discharge Planning Initial Assessment Updated by [email or web address]: Charissa Alvarez on 07/08/19 4:04 pm * Is the patient Alert and Oriented? Yes * How many steps to enter\exit or inside your home? * PCP TEENA * Pharmacy [facility] * Preadmission Environment Home Alone * ADLs Independent * Other Equipment SHOWER CHAIR, W/C , WALKER, NEBULIZER * List name and contact numbers for known caregivers / representatives who currently or will assist patient after discharge: FERNANDA JAMESON [facility]- [phone] * Community resources currently utilized None * Please name any agencies selected above. [facility] * Additional services required to return to the preadmission environment? No * Can the patient safely return to the preadmission environment? Yes * Has this patient been hospitalized within the prior 30 days at any hospital? No Patient Name: ASAD CHO Page [id number] at 1606 All edits/amendments must be made on the electronic document DICTATION DATE: 07/08/191605 COMMUNITY REPRESENTATIVE: GET 07/08/19 160 RPT#: [id number] DC DATE: STATUS: ADM IN [facility] [address] [place] [address] END OF REPORT
--- NOTE | 2019-07-08 16:16 | MORECARE ---
CASE MANAGEMENT DISCHARGE SUMMARY PATIENT: ASAD CHO UNIT: [id number] ADM DATE: 07/07/19 AGE: 54 : 63 SEX: F ROOM/BED: D.4542 AUTHOR: JILLIANDOC PHYSICIAN: REFERRING PHYSICIAN: NEW POPE MD DATE OF SERVICE: 07/08/19 Discharge Plan Patient Name: ASAD CHO Facility: [facility]:[place] : 1965 Planned Disposition: Home with Home Health Anticipated Discharge Date: Discharge Date: Expected LOS: Initial Reviewer: [email or web address] Initial Review Date: 07/08/2019 Generated: 07/08/19 5:15 pm Comments DCP- Discharge Planning Updated by [email or web address]: Charissa Alvarez on 07/08/19 3:[address] Patient Name: ASAD CHO Admission Status: ER Accout number: [id number] Admission Date: 07-07-2019 : 1965 Admission Diagnosis: Attending: NEW POPE Current LOS: 1 Anticipated DC Date: Planned Disposition: Home with Home Health Primary Insurance: MEDICARE A & B Discharge Planning Comments: CM met with patient to complete initial dc planning assessment. CM educated patient on the CM role and verbal consent given by patient to complete assessment. Patient lives at home alone where she is independent with her care. At discharge patient plans to return home and feels this is a safe discharge. CM discussed availability of home health, rehab services, and medical equipment. Patient states that she would like [facility] upon discharge. NOELLE signed. Patient has a nebulizer unknown provider. She doesn't have any home 02. Patient denied known discharge needs at this time. CM will continue to follow and will assist as needed with dc plans/needs. Jailer/Training Officer: Charissa Alvarez DCPIA - Discharge Planning Initial Assessment Updated by [email or web address]: Charissa Alvarez on 07/08/19 4:04 pm * Is the patient Alert and Oriented? Yes * How many steps to enter\exit or inside your home? * PCP TEENA * Pharmacy [facility] * Preadmission Environment Home Alone * ADLs Independent * Other Equipment SHOWER CHAIR, W/C , WALKER, NEBULIZER * List name and contact numbers for known caregivers / representatives who currently or will assist patient after discharge: FERNANDA JAMESON - SERVICE COORDINATOR [facility]- [phone] * Community resources currently utilized None * Please name any agencies selected above. [facility] * Additional services required to return to the preadmission environment? No * Can the patient safely return to the preadmission environment? Yes * Has this patient been hospitalized within the prior 30 days at any hospital? No Last DP export: 07/08/19 3:06 p Patient Name: ASAD CHO Page [id number] at 1616 All edits/amendments must be made on the electronic document DICTATION DATE: 07/08/191614 COLLISION CENTER MANAGER: GET 07/08/191614 RPT#: [id number] DC DATE: STATUS: ADM IN [facility] [address] [place] [address] END OF REPORT
[2019-07-08] MEDS ORDERED: KLONOPIN0.5 MG PO (17:45)
--- NOTE | 2019-07-08 17:56 | NUR ---
PT UPSET AND CRYING AND WANTING MEDICATIONS AND KLONOPIN ORDERED. ANA DONOVAN PAGED ABOUT MEDICATIONS.
--- NOTE | 2019-07-08 18:02 | NUR ---
SPOKE WITH ANA JARRETT AND HE STATES TO ORDER KLONPIN 0.5MG BID PRN.
--- NOTE | 2019-07-08 18:31 | NUR ---
PT UPSET AND WANTING HER BOYFRIEND TO TAKE HOME HER BELONGINGS. SPOKE WITH FABIENNE HERNANDEZ AND SHE STATED TO HAVE THE MHT DO A BELONGINGS INVENTORY AND WE(NURSE) CAN HAVE HER(PT) SIGN.
--- NOTE | 2019-07-08 18:49 | NUR ---
MENTAL HEALTH TECH FILLING OUT BELONGINGS SHEET ONLY THINGS KEPT WERE ADVAIR AND CLOZAPINE AND PT'S STICKER WAS PLACED ON MEDS AND PUT IN CASSETT.
--- NOTE | 2019-07-08 18:56 | NUR ---
MENTAL HEALTH TECH FILLED OUT BELONGINGS REPORT SHE SIGNED AND PT AND PT'S BOYFRIEND SIGNED. BELONGINGS GIVEN TO PT'S BOYFRIEND TO TAKE HOME. AND BELONGINGS SHEET PLACED IN CHART.
[2019-07-09] VITALS: BP 113/65
[2019-07-09 04:00] VITALS: BP 141/65
[2019-07-09 05:52] LABS: BASOPHILS 0.1 % (0-2); EOSINOPHILS 0.7 % (0-7); HEMATOCRIT 34.9 % (36.0-48.0); HEMOGLOBIN 11.4 g/dL (12-16); IMMATURE GRANULOCYTES 0.4 % (0-5); LYMPHOCYTES 20.3 % (15-50); MCH 27.6 pg (26.0-34.0); MCHC 32.7 g/dL (31.0-37.0); MCV 84.5 fL (80.0-100.0); MEAN PLATELET VOLUME 9.4 fL (7.4-10.4); MONOCYTES 6.8 % (2-11); NEUTROPHILS 71.7 % (40-80); PLATELET COUNT 261 10x3/uL (130-400); RBC 4.13 10x6/uL (4.00-5.40); RDW 14.7 % (11.5-14.5); WBC 12.7 10x3/uL (4.8-10.8)
[2019-07-09 05:59] LABS: CALC OSMOLALITY 291 mosm/kg (275-300); CALCIUM 8.2 mg/dL (8.5-10.1); CARBON DIOXIDE 29.1 mmol/L (21.0-32.0); CHLORIDE - SERUM 110 mmol/L (98-107); CREATININE - SERUM 0.8 mg/dL (0.6-1.3); POTASSIUM - SERUM 3.6 mmol/L (3.5-5.1); SODIUM 145 mmol/L (136-145); UREA NITROGEN 13 mg/dL (7-18); eGFR NON AFRICAN AMERICAN 79 mL/min (90-120)
[2019-07-09 06:01] LABS: GLUCOSE 153 mg/dL (74-106)
--- NOTE | 2019-07-09 07:00 | NUR ---
RECEIVED REPORT. ASSUMED CARE OF PATIENT. CALL LIGHT WITHIN REACH. PATIENT RESTING ON RIGHT LATERAL SIDE WITH EYES CLOSED. RESP EVEN AND UNLABORED. IV FLUIDS INFUSING ORDERED. NO DISTRESS. PATIENT WITH ONE-ON-ONE SITTER AT DOORWAY AND DOOR IS OPEN SO PATIENT IS VISUALIZED.
[2019-07-09 08:30] VITALS: BP 107/66
--- NOTE | 2019-07-09 11:28 | NUR ---
FSBS 116. NO INSULIN PER SLIDING SCALE.
[2019-07-09 12:45] VITALS: BP 128/67
--- NOTE | 2019-07-09 16:26 | NUR ---
FSBS 173. 2 UNITS HUMULIN R ADMINISTERED PER SLIDING SCALE.
[2019-07-09 16:45] VITALS: BP 115/62
--- NOTE | 2019-07-09 19:25 | NUR ---
BEDSIDE REPORT RECEIVED FROM DAY SHIFT, PT CARE ASSUMED. INTRODUCED SELF AND WROTE NAME ON BOARD. PT SITTING UP IN BED, WATCHING TV. DENIES ANY NEEDS AT THIS TIME. AAKASH NI, AT BEDSIDE. BED IN LOWEST POSITION, SR X2. WILL CONTINUE TO MONITOR.
--- NOTE | 2019-07-09 20:56 | NUR ---
FSBS 130, NO INSULIN NEEDED, PER SLIDING SCALE. NIGHT TIME MEDS ADMINSITERED, PER ORDER. OFFERED SNACK, PT ACCEPTED. DENIES ANY OTHER NEEDS AT THIS TIME. BED IN LOWEST POSITION, SR X1, SITTER AT BEDSIDE. WILL CONTINUE TO MONITOR.
[2019-07-09 22:06] VITALS: BP 173/84
[2019-07-10] VITALS (7 sets, daily range): BP systolic 115–151; BP diastolic 52–82
[2019-07-10 05:42] LABS: BASOPHILS 0.2 % (0-2); EOSINOPHILS 3.3 % (0-7); HEMOGLOBIN 11.8 g/dL (12-16); IMMATURE GRANULOCYTES 0.3 % (0-5); LYMPHOCYTES 21.3 % (15-50); MCH 27.6 pg (26.0-34.0); MCHC 32.8 g/dL (31.0-37.0); MCV 84.1 fL (80.0-100.0); MEAN PLATELET VOLUME 9.1 fL (7.4-10.4); MONOCYTES 8.2 % (2-11); NEUTROPHILS 66.7 % (40-80); PLATELET COUNT 245 10x3/uL (130-400); RBC 4.28 10x6/uL (4.00-5.40); RDW 14.6 % (11.5-14.5)
[2019-07-10 06:03] LABS: CALC OSMOLALITY 285 mosm/kg (275-300); CALCIUM 8.2 mg/dL (8.5-10.1); CARBON DIOXIDE 26.1 mmol/L (21.0-32.0); CHLORIDE - SERUM 109 mmol/L (98-107); CREATININE - SERUM 0.6 mg/dL (0.6-1.3); POTASSIUM - SERUM 3.3 mmol/L (3.5-5.1); SODIUM 144 mmol/L (136-145); UREA NITROGEN 11 mg/dL (7-18); eGFR NON AFRICAN AMERICAN > 90 mL/min (90-120)
[2019-07-10 06:04] LABS: GLUCOSE 93 mg/dL (74-106)
--- NOTE | 2019-07-10 11:30 | NUR ---
ALERT AND ORIENTED X4. SITTING UP IN BED EATING LUNCH. AT BEDSIDE. OK TO DC SITTER PER . CONTINUE PLAN OF CARE AND SAFETY PRECAUTIONS.
--- NOTE | 2019-07-10 19:22 | NUR ---
PT ALERT AND ORIENTATED TO PERSON, PLACE, AND TIME. PT IS SITTING UP IN THE SEMI FOWLERS POSTION. BREATHING IS UNLABORED. PT DENIES ANY PAIN OR CONCERNS AT THIS TIME. PATIENT'S BED IS IN THE LOWEST POISTION AND CALL LIGHT IN REACH.
--- NOTE | 2019-07-10 22:21 | NUR ---
REPOSITIONED PATIENT IN BED. BED IN THE LOWEST POSITION AND CALL LIGHT IN REACH.
[2019-07-11 04:15] VITALS: BP 140/42
[2019-07-11 05:43] LABS: BASOPHILS 0.2 % (0-2); EOSINOPHILS 3.5 % (0-7); HEMATOCRIT 35.1 % (36.0-48.0); HEMOGLOBIN 11.8 g/dL (12-16); IMMATURE GRANULOCYTES 0.4 % (0-5); LYMPHOCYTES 17.9 % (15-50); MCH 28.1 pg (26.0-34.0); MCHC 33.6 g/dL (31.0-37.0); MCV 83.6 fL (80.0-100.0); MEAN PLATELET VOLUME 9.1 fL (7.4-10.4); MONOCYTES 8.7 % (2-11); NEUTROPHILS 69.3 % (40-80); PLATELET COUNT 256 10x3/uL (130-400); RDW 14.4 % (11.5-14.5); WBC 10.1 10x3/uL (4.8-10.8)
[2019-07-11 05:52] LABS: CALC OSMOLALITY 289 mosm/kg (275-300); CALCIUM 8.4 mg/dL (8.5-10.1); CHLORIDE - SERUM 108 mmol/L (98-107); GLUCOSE 88 mg/dL (74-106); POTASSIUM - SERUM 3.2 mmol/L (3.5-5.1); SODIUM 146 mmol/L (136-145); UREA NITROGEN 12 mg/dL (7-18); eGFR NON AFRICAN AMERICAN 79 mL/min (90-120)
[2019-07-11 05:55] LABS: CREATININE - SERUM 0.8 mg/dL (0.6-1.3)
--- NOTE | 2019-07-11 06:00 | NUR ---
I have reviewed this patient and I concur with the Shift Assessment completed by the Licensed Practical Nurse today this shift.
--- NOTE | 2019-07-11 07:30 | NUR ---
RECIEVED REPORT. RESTING IN BED WITH EYES CLOSED. RESPIRATIONS EVEN AND REGULAR. NO SIGNS OF DISTRESS. CONTINUE PLAN OF CARE AND SAFETY PRECAUTIONS.
[2019-07-11 08:14] VITALS: BP 128/64
[2019-07-11 11:17] VITALS: BP 130/61
--- NOTE | 2019-07-11 14:04 | NUR ---
Nutrition Follow-up: Pt reports overall good appetite/PO intake. Diet: Diabetic PO intake: 50-80% (07/10) No new wt Last BM: 07/09 per chart Labs reviewed Meds reviewed May consider cardiac carb consistent diet. RD following.
--- NOTE | 2019-07-11 15:51 | CN ---
PATIENT NAME:ASAD CHO MEDICAL RECORD: [id number] : [birth year] LOCATION:D.M2 D.2132 ADMIT DATE: 07/07/19 ACCOUNT: [id number] CONSULTING PHYSICIAN: GARO ORTA MD REFERRING PHYSICIAN: NEW POPE MD DATE OF CONSULTATION: 07/10/2019 IDENTIFYING DATA: The patient is a 54-year-old and she is admitted to the hospital on a voluntary basis secondary to chest pain and shortness of breath. CHIEF COMPLAINT: None. HISTORY OF PRESENT ILLNESS: The patient was screened on our suicide assessment tool and the tool indicated she needed a sitter. The patient is chronically mentally ill. She does have a history of extensive inpatient and outpatient treatment. She is not displaying any evidence of acute dangerousness currently. ASSESSMENT: Schizoaffective disorder. PLAN: The patient should be maintained on her current psychoactive medications and follow up should be with her psychiatrist at the [facility]. There is no evidence of acute or direct dangerousness now and she does not need a sitter. TRANSINT:[id number] Voice Confirmation ID: [id number] DOCUMENT ID: [id number] GARO ORTA MD at 1551 CC: [id number] DICTATION DATE: 07/10/19930 AERONAUTICAL PROJECT ENGINEER: 07/10/19 1442 ADM IN [place] [id number] [place] [id number]
--- NOTE | 2019-07-11 16:52 | MORECARE ---
CASE MANAGEMENT DISCHARGE SUMMARY PATIENT: ASAD CHO UNIT: [id number] ADM DATE: 07/07/19 AGE: 54 : 63 SEX: F ROOM/BED: D.7872 AUTHOR: JILLIANDOC PHYSICIAN: REFERRING PHYSICIAN: NEW POPE MD DATE OF SERVICE: 07/11/19 Discharge Plan Patient Name: ASAD CHO Facility[facility]:[place] : 1965 Planned Disposition: Inpatient Rehab Anticipated Discharge Date: 07/12/19 Discharge Date: Expected LOS: 5 Initial Reviewer: [id number] Initial Review Date: 07/08/2019 Generated: 07/11/19 5:51 pm Comments DCP- Discharge Planning Updated by [id number]: Miguel Soria on 07/11/19 3:[address] Patient Name: ASAD CHO Encounter No: [id number] : 1965 Primary Insurance: MEDICARE A & B Anticipated DC Date: 07-12-2019 Planned Disposition: Inpatient Rehab External Planned Provider: [facility] INPATIENT [facility] DCP follow-up note: CM RECEIVED REQUEST TO SPEAK TO PT AT HER REQUEST REGARDING HOME HEALTH. CM MET WITH PT IN ROOM TO DISCUSS DISCHARGE NEEDS AND PLANNING. PT STATES SHE IS SHORT OF BREATH AND WEAK, SHE THINKS SHE NEEDS HOME HEALTH OR REHAB AND IS AFRAID TO GO HOME TOO SOON. CM DISCUSSED HOME HEALTH SERVICES AND AVAILABILITY; PT ASKED ABOUT HOME CARE AND IS IN PROCESS OF GETTING PERSONAL CARE WITH [facility]. CM EXPLAINED THE DIFFERENCES BETWEEN THE TWO SERVICES AND WHAT MEDICARE AND MEDICAID ACTUALLY PAY FOR. CM REFERRED PT TO [facility] TO DISCUSS PERSONAL CARE, PT HAS THEIR CARD, CM PHYSICALLY SEEN THE CARD IN PT'S POSSESSION. PT WANTS HOME HEALTH WITH [facility], NOT [facility], CHOICE SIGNED. CM DISCUSSED MEDICAL EQUIPMENT AND REHAB SERVICES. PT STATES SHE WOULD LIKE TO BE CONSIDERED FOR REHAB AT [place] BEFORE GOING HOME WITH HOME HEALTH, STATES SHE HAD REHAB THERE IN THE PAST WITH HER ANKLE AND RECEIVED GOOD CARE. PT PLANS TO GO HOME AFTER INPATIENT REHAB. PT REPORTS HER AGRI BUSINESS AGENT AND PASTORS WILL DRIVE HER HOME AT DISCHARGE. IMPORTANT MESSAGE FROM MEDICARE PROVIDED AND EXPLAINED. CM SPOKE TO BEDSIDE NURSE AND REQUESTED ORDERS FOR OXYGEN TESTING, PHYSICAL THERAPY EVALUATION AND INPATIENT REHAB PRESCREENING. OXYGEN TESTING COMPLETED AND HAD 86% ON ROOM AIR AT EXERTION. PLACED TESTING IN CHART. CM WAITING PHYSICAL THERAPY EVALUATION AND INPATIENT REHAB PRESCREENING / ADMISSION DETERMINATION FROM [facility]. Miguel Soria, CASE MANAGEMENT DCP- Discharge Planning Updated by [id number]: Charissa Alvarez on 07/08/19 3:[address] Patient Name: ASAD CHO Admission Status: ER Accout number: [id number] Admission Date: 07-07-2019 : 1965 Admission Diagnosis: Attending: NEW POPE Current LOS: 1 Anticipated DC Date: Planned Disposition: Home with Home Health Primary Insurance: MEDICARE A & B Discharge Planning Comments: CM met with patient to complete initial dc planning assessment. CM educated patient on the CM role and verbal consent given by patient to complete assessment. Patient lives at home alone where she is independent with her care. At discharge patient plans to return home and feels this is a safe discharge. CM discussed availability of home health, rehab services, and medical equipment. Patient states that she would like [facility] upon discharge. NOELLE signed. Patient has a nebulizer unknown provider. She doesn't have any home 02. Patient denied known discharge needs at this time. CM will continue to follow and will assist as needed with dc plans/needs. Vp Corporate Partnerships: Charissa Alvarez DCPIA - Discharge Planning Initial Assessment Updated by [email or web address]: Charissa Kim on 07/08/19 4:04 pm * Is the patient Alert and Oriented? Yes * How many steps to enter\exit or inside your home? * PCP TEENA * Pharmacy [facility] * Preadmission Environment Home Alone * ADLs Independent * Other Equipment SHOWER CHAIR, W/C , WALKER, NEBULIZER * List name and contact numbers for known caregivers / representatives who currently or will assist patient after discharge: FERNANDA JAMESON - [facility]- [phone] * Community resources currently utilized None * Please name any agencies selected above. WANT[facility] * Additional services required to return to the preadmission environment? No * Can the patient safely return to the preadmission environment? Yes * Has this patient been hospitalized within the prior 30 days at any hospital? No Coverage Notice Reviewer: [email or web address] Albina Soria Notice Issued Date-Time: 07/11/2019 15:30 Notice Type: Patient Choice Letter Notice Delivered To: Patient Relationship to Patient: Elementary Ell Teacher Name: Delivery Method: HAND - Hand Delivered Jelly Days: Prior Verbal Notification: Recipient Understood Notice: Yes Recipient Signature: Yes Med Rec Note Co-signed by Attending: Coverage Notice Comment: NO MEDICAL EQUIPMENT PROVIDER [facility] Reviewer: [email or web address] Albina Soria Notice Issued Date-Time: 07/11/2019 15:30 Notice Type: IM Discharge Notice Notice Delivered To: Patient Relationship to Patient: Elementary Ell Teacher Name: Delivery Method: HAND - Hand Delivered Jelly Days: Prior Verbal Notification: Recipient Understood Notice: Yes Recipient Signature: Yes Med Rec Note Co-signed by Attending: Coverage Notice Comment: Last DP export: 07/08/19 3:15 p Patient Name: ASAD CHO Page [id number] at 1652 All edits/amendments must be made on the electronic document DICTATION DATE: 07/11/191650 TENTMAKER: GET 07/11/191650 RPT#: [id number] DC DATE: STATUS: ADM IN [facility] [address] [place] [address] END OF REPORT
--- NOTE | 2019-07-11 18:03 | NUR ---
SITTING UP IN CHAIR. ALERT AND ORIENTED X4. O2 AT 2L. DENIES ANY NEEDS AT THIS TIME. CONTINUE PLAN OF CARE AND SAFETY PRECAUTIONS.
--- NOTE | 2019-07-11 19:10 | NUR ---
EVENING ROUNDS COMPLETE, PT SITTING UP IN BED, NO SIGNS OF DISTRESS. PT DENIES ANY PAIN AT THIS TIME. AAO X4, VSS. CL IN REACH, BED IN LOWEST POSITION. CONT WITH POC.
[2019-07-11 20:00] VITALS: BP 129/83
[2019-07-12] VITALS: BP 150/72
--- NOTE | 2019-07-12 01:54 | NUR ---
LATE ENTRY, STOP TIME CASSIUS 07/07/192011.
[2019-07-12 04:00] VITALS: BP 134/62
--- NOTE | 2019-07-12 07:45 | NUR ---
RECIEVE REPORT. RESTING IN BED WITH EYES CLOSED. O2 @ 2L. RESPIRATIONS EVEN AND REGULAR. NO SIGNS OF DISTRESS. CONTINUE PLAN OF CARE AND SAFETY PRECAUTIONS.
[2019-07-12 07:56] LABS: BASOPHILS 0.2 % (0-2); EOSINOPHILS 2.4 % (0-7); HEMATOCRIT 33.3 % (36.0-48.0); HEMOGLOBIN 11.2 g/dL (12-16); IMMATURE GRANULOCYTES 0.4 % (0-5); LYMPHOCYTES 18.1 % (15-50); MCH 28.1 pg (26.0-34.0); MCHC 33.6 g/dL (31.0-37.0); MCV 83.5 fL (80.0-100.0); MEAN PLATELET VOLUME 9.3 fL (7.4-10.4); MONOCYTES 9.5 % (2-11); NEUTROPHILS 69.4 % (40-80); PLATELET COUNT 243 10x3/uL (130-400); RBC 3.99 10x6/uL (4.00-5.40); RDW 14.4 % (11.5-14.5); WBC 10.9 10x3/uL (4.8-10.8)
[2019-07-12 08:20] LABS: CALC OSMOLALITY 290 mosm/kg (275-300); CALCIUM 8.4 mg/dL (8.5-10.1); CARBON DIOXIDE 32.3 mmol/L (21.0-32.0); CHLORIDE - SERUM 107 mmol/L (98-107); CREATININE - SERUM 0.7 mg/dL (0.6-1.3); GLUCOSE 72 mg/dL (74-106); POTASSIUM - SERUM 3.2 mmol/L (3.5-5.1); SODIUM 146 mmol/L (136-145); UREA NITROGEN 15 mg/dL (7-18); eGFR NON AFRICAN AMERICAN > 90 mL/min (90-120)
[2019-07-12 08:39] VITALS: BP 121/57
--- NOTE | 2019-07-12 09:48 | NUR ---
Rehab Note- Acute INpatient Rehab prescreen order received. THe patient has a pending PT Eval- will await & see what her functional mobility limitations. Will follow at this time. Thank you for this referral! Sintia Gallegos RN Clinical Liaison, [facility]
[2019-07-12 11:34] VITALS: BP 113/60
[2019-07-12] MEDS ORDERED: AUGMENTIN 875-11 TAB PO (14:15)
--- NOTE | 2019-07-12 16:20 | MORECARE ---
CASE MANAGEMENT DISCHARGE SUMMARY PATIENT: ASAD CHO UNIT: [id number] ADM DATE: 07/07/19 AGE: 54 : 63 SEX: F ROOM/BED: D.7082 AUTHOR: JILLIANDOC PHYSICIAN: REFERRING PHYSICIAN: NEW POPE MD DATE OF SERVICE: 07/12/19 Discharge Plan Patient Name: ASAD COH Facility: [facility]:[place] : 1965 Planned Disposition: Inpatient Rehab Anticipated Discharge Date: 07/12/19 Discharge Date: Expected LOS: 5 Initial Reviewer: [id number] Initial Review Date: 07/08/2019 Generated: 07/12/19 5:20 pm Comments DCP- Discharge Planning Updated by [id number]: Miguel Soria on 07/12/19 3:[address] Patient Name: ASAD CHO Encounter No: [id number] : 1965 Primary Insurance: MEDICARE A & B Anticipated DC Date: 07-12-2019 Planned Disposition: Inpatient Rehab External Planned Provider: [facility] INPATIENT REH[facility] DCP follow-up note: CM SPOKE TO [facility] OF INPATIENT REHAB, THEY PLAN TO ACCEPT PT TODAY FOR REHAB. KOLBY KABA NOTIFIED, PT WILL DISCHARGE TODAY FOR REHAB. PT NOTIFIED, IN AGREEMENT WITH DISCHARGE TO INPATIENT REHAB. [facility] INPATIENT [facility] TO CONTACT MED 2 NURSE WITH ROOM NUMBER WHEN READY TO ACCEPT PT AND NURSE REPORT. Miguel Soria, GRAPPLE YARDER OPERATOR DCP- Discharge Planning Updated by [id number]: Miguel Soria on 07/11/19 3:[address] Patient Name: ASAD CHO Encounter No: [id number] : 1965 Primary Insurance: MEDICARE A & B Anticipated DC Date: 07-12-2019 Planned Disposition: Inpatient Rehab External Planned Provider: [facility] INPAT[facility] RE[facility] DCP follow-up note: CM RECEIVED REQUEST TO SPEAK TO PT AT HER REQUEST REGARDING HOME HEALTH. CM MET WITH PT IN ROOM TO DISCUSS DISCHARGE NEEDS AND PLANNING. PT STATES SHE IS SHORT OF BREATH AND WEAK, SHE THINKS SHE NEEDS HOME HEALTH OR REHAB AND IS AFRAID TO GO HOME TOO SOON. CM DISCUSSED HOME HEALTH SERVICES AND AVAILABILITY; PT ASKED ABOUT HOME CARE AND IS IN PROCESS OF GETTING PERSONAL CARE WITH [facility]. CM EXPLAINED THE DIFFERENCES BETWEEN THE TWO SERVICES AND WHAT MEDICARE AND MEDICAID ACTUALLY PAY FOR. CM REFERRED PT TO [facility] TO DISCUSS PERSONAL CARE, PT HAS THEIR CARD, CM PHYSICALLY SEEN THE CARD IN PT'S POSSESSION. PT WANTS HOME HEALTH WITH [facility], NOT [facility], CHOICE SIGNED. CM DISCUSSED MEDICAL EQUIPMENT AND REHAB SERVICES. PT STATES SHE WOULD LIKE TO BE CONSIDERED FOR REHAB AT [place] BEFORE GOING HOME WITH HOME HEALTH, STATES SHE HAD REHAB THERE IN THE PAST WITH HER ANKLE AND RECEIVED GOOD CARE. PT PLANS TO GO HOME AFTER INPATIENT REHAB. 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 IMPORTANT MESSAGE FROM MEDICARE PROVIDED AND EXPLAINED. CM SPOKE TO BEDSIDE NURSE AND REQUESTED ORDERS FOR OXYGEN TESTING, PHYSICAL THERAPY EVALUATION AND INPATIENT REHAB PRESCREENING. OXYGEN TESTING COMPLETED AND HAD 86% ON ROOM AIR AT EXERTION. PLACED TESTING IN CHART. CM WAITING PHYSICAL THERAPY EVALUATION AND INPATIENT REHAB PRESCREENING / ADMISSION DETERMINATION FROM [facility] INPAT[facility]. Miguel Soria, CASE MANAGEMENT DCP- Discharge Planning Updated by [id number]: Charissa Alvarez on 07/08/19 3:[address] Patient Name: ASAD CHO Admission Status: ER Accout number: [id number] Admission Date: 07-07-2019 : 1965 Admission Diagnosis: Attending: NEW POPE Current LOS: 1 Anticipated DC Date: Planned Disposition: Home with Home Health Primary Insurance: MEDICARE A & B Discharge Planning Comments: CM met with patient to complete initial dc planning assessment. CM educated patient on the CM role and verbal consent given by patient to complete assessment. Patient lives at home alone where she is independent with her care. At discharge patient plans to return home and feels this is a safe discharge. CM discussed availability of home health, rehab services, and medical equipment. Patient states that she would like [facility] upon [facility]. NOELLE signed. Patient has a nebulizer unknown provider. She doesn't have any home 02. Patient denied known discharge needs at this time. CM will continue to follow and will assist as needed with dc plans/needs. Drywall Application Supervisor: Charissa Alvarez DCPIA - Discharge Planning Initial Assessment Updated by [email or web address]: Charissa Alvarez on 07/08/19 4:04 pm * Is the patient Alert and Oriented? Yes * How many steps to enter\exit or inside your home? * PCP TEENA * [facility] * Preadmission Environment Home Alone * ADLs Independent * Other Equipment SHOWER CHAIR, W/C , WALKER, NEBULIZER * List name and contact numbers for known caregivers / representatives who currently or will assist patient after discharge: FERNANDA JAMESON - [facility]- [phone] * Community resources currently utilized None * Please name any agencies selected above. [facility] * Additional services required to return to the preadmission environment? No * Can the patient safely return to the preadmission environment? Yes * Has this patient been hospitalized within the prior 30 days at any hospital? No Coverage Notice Reviewer: [id number] Albina Soria Notice Issued Date-Time: 07/11/2019 15:30 Notice Type: Patient Choice Letter Notice Delivered To: Patient Relationship to Patient: Mixed Animal Veterinarian Name: Delivery Method: HAND - Hand Delivered Jelly Days: Prior Verbal Notification: Recipient Understood Notice: Yes Recipient Signature: Yes Med Rec Note Co-signed by Attending: Coverage Notice Comment: NO MEDICAL EQUIPMENT PROVIDER [facility] Reviewer: [id number] Albina Soria Notice Issued Date-Time: 07/11/2019 15:30 Notice Type: IM Discharge Notice Notice Delivered To: Patient Relationship to Patient: Mixed Animal Veterinarian Name: Delivery Method: HAND - Hand Delivered Jelly Days: Prior Verbal Notification: Recipient Understood Notice: Yes Recipient Signature: Yes Med Rec Note Co-signed by Attending: Coverage Notice Comment: Last DP export: 07/11/19 3:52 p Patient Name: ASAD CHO Page [id number] at 1620 All edits/amendments must be made on the electronic document DICTATION DATE: 07/12/19 1620 EDITOR NEWS: GET 07/12/19 1620 RPT#: [id number] [place] DATE: STATUS: ADM IN [facility] [address] [place] [address] END OF REPORT
[2019-07-12 16:52] VITALS: Ht 162.6 cm; Wt 94.8 kg
--- NOTE | 2019-07-12 18:18 | NUR ---
REPORT CALLED TO MARY HENDRICKSON IN REHAB. EMEKA STATES, "PATIENT CAN NOT BE MOVED UNTIL AFTER SHIFT CHANGE DUE TO STAFFING."
== END 2019-07-12 19:15 | DRG 202 ==
LOC: D.ER 15:51 → D.MS 19:23 → D.M2 19:23
PROVIDERS: Emergency Medicine; Family Medicine; ADMIT Legal Medicine; ATTEND Legal Medicine
DX: J20.9 Acute bronchitis, unspecified (principal); J44.0 Chronic obstructive pulmonary disease with (acute) lower respiratory infection; J44.1 Chronic obstructive pulmonary disease with (acute) exacerbation; D72.829 Elevated white blood cell count, unspecified; E11.9 Type 2 diabetes mellitus without complications; I10 Essential (primary) hypertension; F20.9 Schizophrenia, unspecified; E66.9 Obesity, unspecified; Z68.35 Body mass index [BMI] 35.0-35.9, adult; J06.9 Acute upper respiratory infection, unspecified; Z86.73 Personal history of transient ischemic attack (TIA), and cerebral infarction without residual deficits

== ENCOUNTER 2019-07-12 16:49 | Inpatient (IN) | payer MEDICARE ==
[~2019-07-12] VITALS: Ht 162.6 cm; Wt 94.8 kg
[~2019-07-12 16:49] MED LIST changes: +ADVAIR HFA 45/212 GM INH; +AUGMENTIN 875-11 TAB PO; +KLONOPIN0.5 MG PO
--- NOTE | 2019-07-12 19:20 | NUR ---
PT ARRIVED VIA WHEELCHAIR. CL IN REACH. PT AMBULATES AND IS MIN ASSIST. IV IN LEFT FOREARM. O2 ON 2L VIA NC. A/O X4. LUNGS DIMINISHED. BOWEL ACTIVE X4. RESP EVEN AND UNLABORED. OCCASIONAL COUGH NOTED PRODUCTIVE. WILL CONTINUE TO MONITOR.
[2019-07-12 20:46] VITALS: BP 189/99
[2019-07-12 20:50] VITALS: BP 189/99; BMI 35.9
--- NOTE | 2019-07-12 22:05 | NUR ---
PT STATES HOME MEDICATION IS UPSTAIRS ON PREVIOUS MED FLOOR. THIS NURSE WENT TO MED SURG FLOOR AND LOOKED EVERYWHERE FOR MEDICATION. DID NOT FIND MEDICATION.
--- NOTE | 2019-07-12 22:22 | NUR ---
FOUND PT HOME MEDICATION ADVAIR AND CLOZARIL BOTH GIVEN. 4 TABS OF CLOZARIL GIVEN 200MG EACH FOR A TOTAL OF 800MG. AND PT INHALED 2 PUFFS OF ADVAIR INHALER.
--- NOTE | 2019-07-13 03:25 | NUR ---
pt resting quietly. cl in reach. eyes closed. no distress noted. wctm
[2019-07-13 06:38] LABS: BASOPHILS 0.1 % (0-2); EOSINOPHILS 2.5 % (0-7); HEMATOCRIT 33.1 % (36.0-48.0); IMMATURE GRANULOCYTES 0.4 % (0-5); LYMPHOCYTES 20.7 % (15-50); MCH 27.8 pg (26.0-34.0); MCHC 33.2 g/dL (31.0-37.0); MCV 83.6 fL (80.0-100.0); MONOCYTES 8.2 % (2-11); NEUTROPHILS 68.1 % (40-80); PLATELET COUNT 243 10x3/uL (130-400); RBC 3.96 10x6/uL (4.00-5.40); RDW 14.5 % (11.5-14.5)
[2019-07-13 07:36] LABS: CALC OSMOLALITY 292 mosm/kg (275-300); CALCIUM 8.2 mg/dL (8.5-10.1); CARBON DIOXIDE 31.1 mmol/L (21.0-32.0); CHLORIDE - SERUM 108 mmol/L (98-107); CREATININE - SERUM 0.7 mg/dL (0.6-1.3); GLUCOSE 107 mg/dL (74-106); POTASSIUM - SERUM 3.2 mmol/L (3.5-5.1); SODIUM 147 mmol/L (136-145); UREA NITROGEN 14 mg/dL (7-18); eGFR NON AFRICAN AMERICAN > 90 mL/min (90-120)
[2019-07-13 07:56] VITALS: BP 151/72
--- NOTE | 2019-07-13 08:00 | NUR ---
SHIFT ASSMT COMPLETED.DENIES NEEDS.BREAKFAST GIVEN.
--- NOTE | 2019-07-13 10:30 | NUR ---
PATIENT ADMITTED TO REHAB FROM ACUTE FLOOR. HER PCP IS DR. DICKINSON. DME AT HOME IS A SHOWER CHAIR, WALKER AND A NEBULIZER. SHE WOULD LIKE [employer] [facility] AT TIME OF DISCHARGE. SHE HAS INFORMATION REGARDING [facility] C[facility]. WILL CONTINUE TO FOLLOW WITH PATIENT AND WILL ASSIST WITH DISCHARGE NEEDS.
--- NOTE | 2019-07-13 12:00 | NUR ---
SITTING UP EATING LUNCH.
[2019-07-13 14:01] VITALS: Ht 162.6 cm; Wt 94.8 kg
--- NOTE | 2019-07-13 19:35 | NUR ---
PT SITTING UP IN BED. CL IN REACH. DENIES NEEDS AT THIS TIME. BED IN LOW SIDE RAILS X2. RESP EVEN AND UNLABORED. A/O X4. LUNGS DIMINISHED. BOWEL ACTIVE X4. WILL CONTINUE TO MONITOR.
[2019-07-13 21:59] VITALS: BP 132/67
--- NOTE | 2019-07-14 02:07 | NUR ---
I have reviewed this patient and I concur with the Shift Assessment completed by the Licensed Practical Nurse today this shift.
--- NOTE | 2019-07-14 04:07 | NUR ---
PT COMPLAINING OF NOT BEING ABLE TO BREATHE. OXYGEN STAT 96% AFTER PLACING PT ON 2L OF OXYGEN VIA NC. PT WAS ADMITTED TO THE FLOOR WEARING AND OXYGEN ON 07/12/19 AND PT DID NOT HAVE OXYGEN WHEN THIS NURSE WENT INTO ROOM. PT STATES FEELING BETTER. CHECKED BS IT WAS 94. WILL CONTINUE TO MONITOR. CL IN REACH
--- NOTE | 2019-07-14 06:35 | NUR ---
BS WAS 70 THIS AM. ORANGE JUICE WAS GIVEN. WCTM
[2019-07-14 08:00] VITALS: BP 139/64
--- NOTE | 2019-07-14 15:02 | NUR ---
RESTING QUIETLY IN BED. EYES CLOSED. STILL WEARING OXYGEN. USES WALKER FOR AMBULATION ASST. CALL LIGHT IN REACH
--- NOTE | 2019-07-14 19:27 | NUR ---
GREETED PATIENT AND INTRODUCED MYSELF. PATIENT IS SITTING IN BED WATCHING TV. ADMINISTERED PRN PAIN MEDICATIONS FOR PAIN 05/04. RESPIRATIONS EVEN. NO S/S OF DISTRESS. O2 AT 2L VIA NC. CALL LIGHT IN REACH.
[2019-07-14 20:34] VITALS: BP 140/78
[2019-07-15 07:52] LABS: BASOPHILS 0 % (0-2); EOSINOPHILS 3.1 % (0-7); HEMATOCRIT 33.2 % (36.0-48.0); HEMOGLOBIN 10.8 g/dL (12-16); IMMATURE GRANULOCYTES 0.2 % (0-5); LYMPHOCYTES 16.6 % (15-50); MCH 27.6 pg (26.0-34.0); MCHC 32.5 g/dL (31.0-37.0); MCV 84.9 fL (80.0-100.0); MEAN PLATELET VOLUME 8.9 fL (7.4-10.4); MONOCYTES 8.4 % (2-11); NEUTROPHILS 71.7 % (40-80); PLATELET COUNT 235 10x3/uL (130-400); RBC 3.91 10x6/uL (4.00-5.40); RDW 14.7 % (11.5-14.5); WBC 10.8 10x3/uL (4.8-10.8)
--- NOTE | 2019-07-15 08:00 | NUR ---
RESTING QUIETLY IN BED. EYES CLOSED. CALL LIGHT IN REACH
[2019-07-15 08:04] LABS: CALC OSMOLALITY 286 mosm/kg (275-300); CALCIUM 8.1 mg/dL (8.5-10.1); CARBON DIOXIDE 30.9 mmol/L (21.0-32.0); CHLORIDE - SERUM 108 mmol/L (98-107); CREATININE - SERUM 0.8 mg/dL (0.6-1.3); GLUCOSE 89 mg/dL (74-106); POTASSIUM - SERUM 3.7 mmol/L (3.5-5.1); SODIUM 144 mmol/L (136-145); UREA NITROGEN 14 mg/dL (7-18); eGFR NON AFRICAN AMERICAN 79 mL/min (90-120)
[2019-07-15 08:36] VITALS: BP 134/65
--- NOTE | 2019-07-15 10:19 | NUR ---
NUTRITION F/U PT IN THERAPY. INTAKE RECORDS INDICATE 100% INTAKE BREAKFAST. DIABETIC DIET. WILL CONTINUE TO PROVIDE DIET, MONITOR PO INTAKE. RD FOLLOWING
--- NOTE | 2019-07-15 10:33 | RHP ---
PATIENT: ASAD CHO MEDICAL RECORD: [id number] ACCOUNT: [id number] LOCATION:[id number] : 63 ADMISSION DATE: 07/12/19 REHABILITATION HISTORY AND PHYSICAL EXAMINATION POST ADMISSION PHYSICIAN EXAMINATION ADMITTING DIAGNOSIS: COPD exacerbation. HISTORY OF PRESENT ILLNESS: The patient is a 54-year-old female patient presented to ED with chest pain occurring 7 days prior to admission. She had increasing shortness of breath, cough, wheezing, and sputum production. She was admitted for acute exacerbation of COPD. She was treated with IV steroids, IV antibiotic therapy. She has also been seen by a psychiatrist for suicidal thoughts and found not to be a harm to herself, has been followed by pulmonary throughout her stay. She had a history of COPD, TIA, neuropathy, pneumonia, occasional urinary incontinence, acid reflux, osteoporosis, depression, schizophrenia, and suicidal ideation. She is on supplemental O2, IV therapies, Lovenox subQ. Been monitored closely for her blood sugar response to steroid use. She is an insulin-dependent diabetic. She has got dyspnea on exertion, deconditioning, debility, impaired mobility, gait disturbance. She is a high fall risk and self-care deficits. There are barriers to her discharge home. She lives in an apartment alone. She is independent with her ADLs and mobility prior to this. She has no home O2 set up. Currently, she is mod assist for ADLs, mod assist with her mobility and requiring supplemental O2 to get her set up. She sees Dr. Mendoza as her primary care doctor would like to return home if possible. COMORBIDITIES: Include hypertension, obesity, leukocytosis, chronic schizoaffective disorder, hypoxia, deconditioning, obesity, COPD, and diabetes. PAST MEDICAL HISTORY: Significant for TIA, diabetes, neuropathy, arthritis, osteoporosis, COPD, coronary artery disease, pneumonia, acid reflux, chronic pain, depression, schizophrenia, suicidal ideation. PAST SURGICAL HISTORY: Includes gallbladder surgery, appendectomy, hysterectomy, ankle fixation, angioplasty with stents. ALLERGIES: ULTRAM AND RISPERDAL. CURRENT MEDICATIONS: Include Detrol-LA 2 mg daily, Senna 2 tabs daily, Protonix 40 mg daily, furosemide 20 mg daily, atorvastatin 10 mg daily, metformin 1000 mg b.i.d. with meals, Atrovent updrafts as needed, Invokana 100 mg daily, Ventolin 2.5 mg q.4 hours p.r.n. She is on a glucose replacement protocol, glucagon, insulin, low resistant, sliding scale with Humulin. She is on Lantus 80 units at bedtime, Amoxil 875 b.i.d., [place] 5/325 one tab q.4 hours p.r.n., and Klonopin 0.5 mg b.i.d. HABITS: No current alcohol or tobacco use. FAMILY HISTORY: Noncontributory. SOCIAL HISTORY: The patient hopes to return back home and get back to her prior level of functioning. REVIEW OF SYSTEMS: HISTORY AND PHYSICAL [id number] ASAD CHO GENERAL: Does complain of some weakness and fatigue. HEENT: Does complain of cold, cough, and congestion. CARDIOVASCULAR: Denies any chest pain. LUNGS: Does complain of some shortness of breath. PHYSICAL EXAMINATION: VITAL SIGNS: Stable, afebrile. GENERAL: A somewhat obese female, in no distress, alert upon exam. HEENT: Normocephalic and atraumatic. Mucosa moist. NECK: Supple without adenopathy. LUNGS: Clear in upper martini. She does have decreased breath sounds in the bases. HEART: Regular rate and rhythm. No murmurs, rubs or gallops. ABDOMEN: Soft, benign, and nondistended. Positive bowel sounds times 4, noted to be obese. EXTREMITIES: No clubbing, cyanosis or edema. NEUROLOGIC: She has got 3/5 muscular strength in her proximal muscles of her legs. LABORATORY DATA: White count 11,000, H&H of 11 and 33, and platelet count was noted to be 243. Her sodium is 147, potassium 3.2, BUN and creatinine of 14 and 0.7, and blood sugar noted to be 107. ASSESSMENT: This is a 54-year-old female patient admitted to rehab with a working diagnosis and myopathy associated with COPD. The patient has potential to make improvement. We instituted the following multidisciplinary therapies including, but not limited to physical, occupational, respiratory, speech, nutritional services, prosthetics and orthotics. Given her complex medical conditions and risks for more complications, rehabilitation services cannot be provided at a low level of care such as senior living facility. PLAN: 1. Admit to [facility] for intensive inpatient therapy to include the following disciplines: A. Physical therapy to improve gait, all transfer skills and bed mobility to a modified independent level. B. Occupational therapy to a modified independent level. C. Case management to assist with discharge planning and placement options. D. Nutrition to assist with nutritional needs. E. Rehabilitation nursing to assist in monitoring the patient's underlying medical conditions and to assist with any type of bowel or bladder management. 2. The patient's current medication and medical care will be continued. 3. The patient will be placed on standard fall precautions. 4. We will go ahead and replace her potassium. 5. We will see her again in the a.m. and discuss with the care team today at noon. TRANSINT:[id number] Voice Confirmation ID: [id number] DOCUMENT ID: [id number] MEJIA notes whether there has been none or any medical/functional change since admission: - No change since prescreen. HISTORY AND PHYSICAL [id number] ASAD CHO attests patient continues to be appropriate for IRF: - Continues to be appropriate. MIMI DIAZ MD at 1033 CC: [id number] DICTATION DATE: 07/13/19 0908 TUBING SUPERVISOR: 07/13/19 1005 ADM IN [place] [id number] [place] [address]
[2019-07-15 18:29] VITALS: BP 138/80
--- NOTE | 2019-07-15 19:20 | NUR ---
GREETED PATIENT AND INTRODUCED MYSELF. PATIENT IS SITTING IN WHEELCHAIR VISITING WITH FAMILY FRIEND. O2 AT 2L IN USE. RESPIRAITONS EVEN. NO S/S OF DISTRESS. CALL LIGHT IN REACH.
[2019-07-16 08:00] VITALS: BP 130/71
--- NOTE | 2019-07-16 08:00 | NUR ---
SHIFT ASSMT COMPLETED.UP OOB TO WC.DENIES NEEDS.
--- NOTE | 2019-07-16 12:00 | NUR ---
SITTING UP EATING LUNCH.CL IN REACH.
--- NOTE | 2019-07-16 16:00 | NUR ---
SITTING UP IN CHAIR,VISITING WITH FRIEND.
[2019-07-16 19:59] VITALS: BP 148/75
--- NOTE | 2019-07-16 21:44 | NUR ---
PATIENT FSBS 89. HELD JENNIFER & LANRE. WILL SEE FSBS IN AM. FSBS RESULTS LAST NIGHT LOW. WILL GIVE DR. DIAZ FSBS RESULTS ON HIS PAPER Thursday FOR HIS REVIEW OF FSBS & MEDICATION DOSAGES.
--- NOTE | 2019-07-16 21:47 | NUR ---
PATIENT ATE ALL OF HER PEANUT BUTTER SNACK.
--- NOTE | 2019-07-17 01:51 | NUR ---
I have reviewed this patient and I concur with the Shift Assessment completed by the Licensed Practical Nurse today this shift.
--- NOTE | 2019-07-17 03:36 | NUR ---
PATIENT EYES CLOSED. RESPIRATIONS 18 & EVEN. BED LOW. FRIEND IN ROOM. CALL LIGTH WITHIN REACH. WILL CONTINUE TO MONITOR.
--- NOTE | 2019-07-17 04:41 | NUR ---
PATIENT C/O SOB. 02@ 2L ON SAT FROM 90 TO 92%. CALL [facility] [employer]. WILL CONTINUE TO MONITOR.
--- NOTE | 2019-07-17 08:00 | NUR ---
SHIFT ASSMT COMPLETED.
[2019-07-17 08:09] VITALS: BP 129/72
--- NOTE | 2019-07-17 12:00 | NUR ---
SITTING UP EATING LUNCH.
--- NOTE | 2019-07-17 20:00 | NUR ---
PATIENT RECEIVED SITING UP IN BED WATCHING TV. SON AT BEDSIDE. ASSESSMENT & VITAL SIGNS DONE. BED LOW. CALL LIGHT WITHIN REACH. WILL CONTINUE TO MONITOR.
[2019-07-17 20:01] VITALS: BP 149/82
--- NOTE | 2019-07-17 21:35 | NUR ---
PATIENT BATHED WITH HIBICLENS. LINENS CHANGED. BED LOW. CALL LIGHT WITHIN REACH. WILL CONTINUE TO MONITOR.
--- NOTE | 2019-07-18 01:22 | NUR ---
I have reviewed this patient and I concur with the Shift Assessment completed by the Licensed Practical Nurse today this shift.
[2019-07-18 07:48] LABS: BASOPHILS 0.2 % (0-2); EOSINOPHILS 2.8 % (0-7); HEMATOCRIT 33.2 % (36.0-48.0); HEMOGLOBIN 10.9 g/dL (12-16); IMMATURE GRANULOCYTES 0.3 % (0-5); MCH 27.7 pg (26.0-34.0); MCHC 32.8 g/dL (31.0-37.0); MCV 84.5 fL (80.0-100.0); MEAN PLATELET VOLUME 8.9 fL (7.4-10.4); MONOCYTES 7.7 % (2-11); PLATELET COUNT 256 10x3/uL (130-400); RBC 3.93 10x6/uL (4.00-5.40); RDW 14.7 % (11.5-14.5); WBC 11.1 10x3/uL (4.8-10.8)
[2019-07-18 08:00] VITALS: BP 105/48
[2019-07-18 08:13] LABS: CALC OSMOLALITY 285 mosm/kg (275-300); CALCIUM 8.8 mg/dL (8.5-10.1); CARBON DIOXIDE 31.4 mmol/L (21.0-32.0); CHLORIDE - SERUM 103 mmol/L (98-107); CREATININE - SERUM 0.8 mg/dL (0.6-1.3); GLUCOSE 131 mg/dL (74-106); SODIUM 141 mmol/L (136-145); UREA NITROGEN 20 mg/dL (7-18); eGFR NON AFRICAN AMERICAN 79 mL/min (90-120)
--- NOTE | 2019-07-18 19:34 | NUR ---
PT SITTING UP IN WHEELCHAIR. CL IN REACH. DENIES NEEDS AT THIS TIME. A/O X4. RESP EVEN AND UNLABORED. WILL CONTINUE TO MONITOR.
[2019-07-18 21:47] VITALS: BP 145/79
--- NOTE | 2019-07-19 01:43 | NUR ---
QUIET HOURS. PT LYING IN BED ON LEFT SIDE EYES CLOSED RESTING QUIETLY.
--- NOTE | 2019-07-19 03:14 | NUR ---
PT RESTING QUIETLY. CL IN REACH. NO DISTRESS NOTED. WCTM
--- NOTE | 2019-07-19 04:16 | NUR ---
I have reviewed this patient and I concur with the Shift Assessment completed by the Licensed Practical Nurse today this shift.
--- NOTE | 2019-07-19 05:37 | NUR ---
FSBS 132 NO INSULIN REQUIRED
--- NOTE | 2019-07-19 07:06 | NUR ---
RESTING QUIETLY IN BED. EYES CLOSED. NO S/S DISTRESS. BED IN LOWEST POSITION, SIDE RAILS UP X2. CALL LIGHT IN REACH
[2019-07-19 10:10] VITALS: BP 120/76
--- NOTE | 2019-07-19 12:47 | NUR ---
NO LUNCH TIME INSULIN GIVEN. PT'S FSBS WAS 168 BUT SHE DECLINED TO EAT LUNCH. SHE WAS LAYING DOWN IN BED AND WAS COOPERATIVE WITH FSBS BUT SPOKE TO NURSE STATING SHE DID NOT WANT TO EAT. CALL LIGHT IN REACH.
--- NOTE | 2019-07-19 17:45 | NUR ---
ROLLING AROUND UNIT IN WC. DENIES NEEDS
--- NOTE | 2019-07-19 19:35 | NUR ---
PT SITTING UP IN BED CL IN REACH. DENIES NEEDS OR PAIN AT THIS TIME. BED IN LOW SIDE RAILS X2. O2 ON 2L VIA NC. A/O X4. LUNGS DIMINISHED. BOWEL ACTIVE X4. RESP EVEN AND UNLABORED. WCTM
[2019-07-19 21:29] VITALS: BP 139/69
--- NOTE | 2019-07-20 01:38 | NUR ---
I have reviewed this patient and I concur with the Shift Assessment completed by the Licensed Practical Nurse today this shift.
--- NOTE | 2019-07-20 05:44 | NUR ---
FSBS 139. NO INSULIN REQUIRED. RESTING QUIETLY. NO DISTRESS NOTED. WCTM
[2019-07-20 07:35] LABS: BASOPHILS 0.1 % (0-2); EOSINOPHILS 3.6 % (0-7); HEMATOCRIT 32.5 % (36.0-48.0); HEMOGLOBIN 10.6 g/dL (12-16); IMMATURE GRANULOCYTES 0.3 % (0-5); LYMPHOCYTES 15.9 % (15-50); MCH 27.7 pg (26.0-34.0); MCHC 32.6 g/dL (31.0-37.0); MCV 85.1 fL (80.0-100.0); MEAN PLATELET VOLUME 8.6 fL (7.4-10.4); MONOCYTES 8.8 % (2-11); NEUTROPHILS 71.3 % (40-80); PLATELET COUNT 272 10x3/uL (130-400); RBC 3.82 10x6/uL (4.00-5.40); RDW 14.4 % (11.5-14.5); WBC 10.2 10x3/uL (4.8-10.8)
[2019-07-20 07:51] LABS: CALC OSMOLALITY 287 mosm/kg (275-300); CALCIUM 8.7 mg/dL (8.5-10.1); CARBON DIOXIDE 29.6 mmol/L (21.0-32.0); CHLORIDE - SERUM 106 mmol/L (98-107); CREATININE - SERUM 0.7 mg/dL (0.6-1.3); POTASSIUM - SERUM 4.1 mmol/L (3.5-5.1); SODIUM 141 mmol/L (136-145); UREA NITROGEN 17 mg/dL (7-18); eGFR NON AFRICAN AMERICAN > 90 mL/min (90-120)
[2019-07-20 07:52] LABS: GLUCOSE 184 mg/dL (74-106)
--- NOTE | 2019-07-20 08:00 | NUR ---
SHIFT ASSMT COMPLETED.
[2019-07-20 08:04] VITALS: BP 118/69
--- NOTE | 2019-07-20 10:24 | NUR ---
[facility].SATS CHECKED AND NOTED 98% AFTER AMBULATING.PULSE 118.
--- NOTE | 2019-07-20 12:00 | NUR ---
SITTING UP EATING LUNCH.
--- NOTE | 2019-07-20 13:43 | NUR ---
Nutrition Follow-up: Diet: Diabetic PO intake: ~82% averages x 7 meals, good appetite. Labs noted, BG elevated. Significant meds: lantus, lasix, metformin, SSI, augmentin Last BM: 07/16/19 x 3. Skin assesment reviewed. Last wt: 209# (07/13/19) Continue current nutrition regimen. RD Following
--- NOTE | 2019-07-20 19:38 | NUR ---
PATIENT RECEIVED SITTING UP IN WHEELCHAIR TALKING TO FRIENDS. ASSESSMENT & VITAL SIGNS DONE. CALL LIGHT WITHIN REACH. WILL CONTINUE TO MONITOR.
[2019-07-20 21:17] VITALS: BP 144/74
--- NOTE | 2019-07-20 22:31 | NUR ---
PATIENT FSBS AT THIS TIME 208. PATIENT GIVEN LANTUS 40 PER ORDER. HELD HUMULIN.
--- NOTE | 2019-07-21 04:35 | NUR ---
PATIENT EYES CLOSED. RESPIRATIONS 18 & EVEN. BED LOW. CALL LIGHT WITHIN REACH. WILL CONTINUE TO MONITOR.
--- NOTE | 2019-07-21 05:00 | NUR ---
I have reviewed this patient and I concur with the Shift Assessment completed by the Licensed Practical Nurse today this shift.
[2019-07-21 08:00] VITALS: BP 131/68
--- NOTE | 2019-07-21 08:00 | NUR ---
SHIFT ASSMT COMPLETED.BREAKFAST GIVEN.
--- NOTE | 2019-07-21 12:00 | NUR ---
SITTING UP EATING LUNCH.
[2019-07-21 19:00] VITALS: BP 140/72
--- NOTE | 2019-07-21 19:40 | NUR ---
GREETED PATIENT AND INTRODUCED MYSELF HER NURSE. PATIENT IS LAYING IN BED WATCHING TV. RESPIRATIONS EVEN. NO S/S OF DISTRESS. STATES PAIN IS 5/10 IN BACK, BILATERAL HIPS AND RIGHT ARM. DENIES ANY FURTHER NEEDS AT THIS TIME. CALL LIGHT IN REACH.
[2019-07-22 07:37] VITALS: BP 128/56
[2019-07-22] MEDS ORDERED: HYDROCODON-ACE1 EAC7 PO (08:50)
--- NOTE | 2019-07-22 09:30 | NUR ---
PATIENT DISCHARGING HOME TODAY. [facility] WILL PROVIDE THERAPY AT [facility]. NO NEW DME NEEDED AT THIS TIME.DR. DICKINSON'S OFFICE WILL CALL PATIENT WITH AN APPOINTMENT. DR. MERRITT 10/05/19 @ 9:40. PATIENT CHOICE FORM AND IMFM FORMS SIGNED, COPY GIVEN TO PATIENT AND FILED IN CHART. DISCHARGE INSTRUCTIONS WITH FIM DATA FAXED TO PCP, HOME HEALTH AND REVIEWED WITH PATIENT.
--- NOTE | 2019-09-27 09:55 | DS ---
PATIENT:ASAD CHO :63 MEDICAL RECORD: [id number] DISCHARGE SUMMARY ADMISSION DATE: 07/12/19 DISCHARGE DATE: 07/22/19 This is a discharge dated 07/22/2019 from inpatient rehabilitation. PRIMARY DIAGNOSIS: Decreased functional ability and ability to provide activities of daily living secondary to chronic obstructive pulmonary disease exacerbation. SECONDARY DIAGNOSES: 1. Hypoxia. 2. Transient ischemic attack. 3. Neuropathy. 4. Urinary incontinence. 5. Gastroesophageal reflux disease. 6. Osteoarthritis. 7. Depression. 8. Schizophrenia. 9. Diabetes. 10. Deconditioning. 11. Hypertension. 12. Obesity. 13. Hyperlipidemia. 14. Coronary artery disease. 15. Hypokalemia. HOSPITAL COURSE: Full H&P is located elsewhere on the chart on this 54-year-old female who was admitted to inpatient rehab for physical therapy and occupational therapy to improve gait, transfer skills, bed mobility, and activities of daily living to a modified independent level. She was evaluated by PT, OT and ST and their plans of care were followed. She required mcc care for observation and assessment and medication administration. Electrolytes were managed by protocol. Fingerstick blood sugars were monitored throughout her hospital stay with appropriate adjustment in medications as needed. She remained on supplemental oxygen to keep sats greater than 90%. She had inhaled medications for respiratory support and Augmentin for antibiotic coverage. She was cooperative with therapies, progressing towards goals. Case management was involved for discharge planning. She was considered stable for discharge on 07/22/2019, having met 4/4 long-term goals and made progress in all other areas with physical therapy. She met all of her OT goals and made progress with speech therapy. Additional therapies were recommended upon discharge. DISCHARGE MEDICATIONS: As per discharge medication reconciliation. DISCHARGE DISPOSITION: The patient is discharged home. She will continue her current diet and level of activity. She will have [facility] for continued therapies. She has an appointment on 09/28/2019 for outpatient PFTs and a 6-minute walk test. She will follow up with primary care and specialists as directed. At least 30 minutes was spent in this discharge activity. TRANSINT:[id number] Voice Confirmation ID: [id number] DOCUMENT ID: [id number] DISCHARGE SUMMARY REPORT [id number] ASAD CHO Dictated By: LOYDA GARCIA I have interviewed/examined the above patient and agree with these documented findings. MIMI DIAZ MD at 0958 at 0955 CC: [id number] DICTATION DATE: 09/25/19 1509 CLOSER ON: 09/26/19 0055 DIS IN 07/22/19 [facility] [address] [place] [id number]
== END 2019-07-22 15:00 | disposition home health service (06) | DRG 190 ==
LOC: D.REHAB 16:49
PROVIDERS: ADMIT Emergency Medicine; ATTEND Emergency Medicine
DX: J44.1 Chronic obstructive pulmonary disease with (acute) exacerbation (principal); J18.9 Pneumonia, unspecified organism; F25.9 Schizoaffective disorder, unspecified; R09.02 Hypoxemia; E66.9 Obesity, unspecified; E11.9 Type 2 diabetes mellitus without complications; D72.819 Decreased white blood cell count, unspecified; I10 Essential (primary) hypertension; K21.9 Gastro-esophageal reflux disease without esophagitis; Z68.35 Body mass index [BMI] 35.0-35.9, adult; E78.5 Hyperlipidemia, unspecified; M50.90 Cervical disc disorder, unspecified, unspecified cervical region; E86.0 Dehydration; J44.0 Chronic obstructive pulmonary disease with (acute) lower respiratory infection; F32.9 Major depressive disorder, single episode, unspecified; M81.0 Age-related osteoporosis without current pathological fracture; Z86.73 Personal history of transient ischemic attack (TIA), and cerebral infarction without residual deficits

== ENCOUNTER → 2019-10-06 10:25 | Outpatient (CLI) | payer MEDICARE ==
[2019-07-13 14:01] VITALS: BMI 35.9
--- NOTE | ~2019-10-06 | EC ---
PATIENT:ASAD CHO DATE OF SERVICE: 10/06/19 SEX: F MEDICAL RECORD: [id number] DATE OF : 63 [facility]GE [facility] PAT[facility]: 54 ADMISSION DATE: 10/06/19 REFERRING PHYSICIAN: INTERPRETING PHYSICIAN: ASHLEY TRONCOSO MD ECHOCARDIOGRAM REPORT ECHO CHARGES 4 ECHO COMPLETE Date: 10/06/19 CLINICAL DIAGNOSIS: H/O A-FIB/CAD ECHOCARDIOGRAPHIC MEASUREMENTS (adult normal given) AC root (d.<3.7cm) 3.1 cm LV Septum d (<1.2 cm> 1.0 cm Valve Excursion 1.8 cm LV Septum (systole) 1.3 cm Left Atria (s.<4.0cm> 3.9 cm LVPW d(<1.2cm) 1.0 cm RV (d.<2.3cm) 2.7 cm LVPW (sytole) 1.5 cm LV diastole(<5.6CM) 5.3 cm MV E-F(>70mm/sec) cm LV systole 4.2 cm LVOT Diameter 1.9 cm MV exc.(>10mm) cm Est.ejection fraction (50-75%) % DOPPLER: LVIT cm/sec A 107 cm/sec E 70.0 cm/sec LA cm/sec RVSP 15.2 mmHg LVOT 121 cm/sec AOP1/2T m/s Asc. Ao 153 cm/sec RVOT 76.0 cm/sec RA cm/sec PA 106 cm/sec AV Gradient Peak 9.4 mmHg AV Mean 5.3 mmHg AV Area 2.4 cm MV Gradient Peak 5.0 mmHg MV Mean 1.7 mmHg MV Area cm COMMENTS: OP - HC Patent Paralegal: 1 VERÓNICA HARPEROE Clinical Data Programmer: 1 Dr. Troncoso TAPE# PACS Pericardial Effusion N DATE OF SERVICE: ECHOCARDIOGRAM FINDINGS: 1. Left ventricular chamber size is within normal limits. Left ventricular systolic function is normal. Overall ejection fraction estimated at 55%. 2. Left atrium, right atrium, and right ventricle chamber sizes are within normal limits. 3. Valvular structures have normal structure and motion. ECHOCARDIOGRAM REPORT [id number] ASAD CHO 4. Doppler interrogation reveals no significant valvular insufficiency or stenosis and pulmonary systolic pressure is normal estimated at 15 mmHg. 5. No evidence of pericardial effusion or left ventricular thrombus. TRANSINT:[id number] Voice Confirmation ID: [id number] DOCUMENT ID: [id number] ASHLEY TRONCOSO MD CC: [id number] DICTATION DATE: 10/07/19 1153 DRAWING IN HAND: 10/07/19 1327 DEP CLI 10/06/19 [facility] [address] [place] [address]
== END | disposition home or self-care (01) ==
LOC: D.HCCECHO 10:25
PROVIDERS: ATTEND Internal Medicine Interventional Cardiology
DX: I45.0 Right fascicular block (principal)

== ENCOUNTER 2019-11-20 19:40 | Emergency (ER) | payer MEDICARE ==
[2019-07-13 14:01] VITALS: Ht 162.6 cm; Wt 99.8 kg
[~2019-11-20] VITALS: Ht 162.6 cm; Wt 99.8 kg
[2019-11-20] MEDS ORDERED: MUCINEX DM ER1 EAC1 PO (21:00)
[2019-11-20] MEDS ORDERED: AUGMENTIN 875-11 TAB PO (21:00)
[2019-11-20 22:03] VITALS: BP 125/71
== END 2019-11-20 22:03 | disposition home or self-care (01) ==
LOC: D.ER 19:40
DX: J40 Bronchitis, not specified as acute or chronic (principal); R05 Cough; E11.9 Type 2 diabetes mellitus without complications; Z79.4 Long term (current) use of insulin; I10 Essential (primary) hypertension; I25.2 Old myocardial infarction; Z95.5 Presence of coronary angioplasty implant and graft; J44.9 Chronic obstructive pulmonary disease, unspecified; G89.29 Other chronic pain; K21.9 Gastro-esophageal reflux disease without esophagitis; Z72.0 Tobacco use

== ENCOUNTER → 2019-12-28 13:55 | Outpatient (CLI) | payer MEDICARE ==
[2019-11-20 20:29] VITALS: BMI 35.9
[~2019-12-28 13:55] MED LIST changes: +MUCINEX DM ER1 EAC1 PO
== END | disposition home or self-care (01) ==
LOC: D.RAD 13:55
PROVIDERS: ATTEND Family Medicine
DX: M25.511 Pain in right shoulder (principal)

== ENCOUNTER 2020-02-20 11:19 | Emergency (ER) | payer MEDICARE ==
[~2020-02-20] VITALS: Ht 162.6 cm; Wt 100.0 kg
[2020-02-20 11:39] VITALS: Ht 162.6 cm; Wt 100.0 kg
[2020-02-20] MEDS ORDERED: BREO ELLIPTA 11 EACH INH (11:41)
[2020-02-20] MEDS ORDERED: HUMALOG 30100 UNITS/ SC (11:43)
[2020-02-20 12:11] LABS: HEMATOCRIT 42.5 % (36.0-48.0); HEMOGLOBIN 13.7 g/dL (12-16); MCH 28.9 pg (26.0-34.0); MCHC 32.2 g/dL (31.0-37.0); MCV 89.7 fL (80.0-100.0); PLATELET COUNT 244 10x3/uL (130-400); RBC 4.74 10x6/uL (4.00-5.40); RDW 14.9 % (11.5-14.5); WBC 11.7 10x3/uL (4.8-10.8)
[2020-02-20 12:13] LABS: CALC OSMOLALITY 280 mosm/kg (275-300); CALCIUM 9.7 mg/dL (8.5-10.1); CARBON DIOXIDE 28.7 mmol/L (21.0-32.0); CHLORIDE - SERUM 99 mmol/L (98-107); CREATININE - SERUM 0.8 mg/dL (0.6-1.3); GLUCOSE 199 mg/dL (74-106); POTASSIUM - SERUM 4.2 mmol/L (3.5-5.1); SODIUM 137 mmol/L (136-145); UREA NITROGEN 14 mg/dL (7-18); eGFR NON AFRICAN AMERICAN 79 mL/min (90-120)
[2020-02-20 12:22] LABS: ALBUMIN 3.3 g/dL (3.4-5.0); ALKALINE PHOSPHATASE 103 U/L (30-120); ALT (SGPT) 33 U/L (10-68); AMYLASE - SERUM 48 U/L (25-115); BILIRUBIN - TOTAL 0.38 mg/dL (0.2-1.3); LIPASE 119 U/L (73-393); PROTEIN - SERUM 8.1 g/dL (6.4-8.2)
[2020-02-20 12:22] LABS: BILIRUBIN NEGATIVE (NEGATIVE); GLUCOSE NEGATIVE (NEGATIVE); KETONE NEGATIVE (NEGATIVE); NITRITE NEGATIVE (NEGATIVE); UROBILINOGEN NORMAL (NORMAL)
[2020-02-20 12:26] LABS: BACTERIA MODERATE /hpf (NEGATIVE); EPITHELIAL CELLS 0-5 /hpf (0-5); RED CELLS - URINE NONE SEEN /hpf (0-5); WHITE CELLS - URINE 0-5 /hpf (NEGATIVE)
[2020-02-20 12:27] LABS: AMORPHOUS SEDIMENT >1+ /lpf (NONE SEEN)
[2020-02-20 12:29] LABS: TROPONIN-I < 0.017 ng/mL (0.000-0.060)
[2020-02-20 12:33] LABS: EOSINOPHILS 2 % (0-7); LYMPHOCYTES 15 % (15-50); MONOCYTES 6 % (2-11); NEUTROPHILS 76 % (40-80)
[2020-02-20 12:34] LABS: PLATELET ESTIMATE NORMAL
[2020-02-20] MEDS ORDERED: ACETAMINOPHEN500 M1 PO (13:54)
[2020-02-20] MEDS ORDERED: CYCLOBENZAPRINE10 MG PO (13:54)
[2020-02-20] MEDS ORDERED: IBUPROFEN800 MG PO (13:54)
[2020-02-20 13:56] VITALS: BP 163/95
== END 2020-02-20 14:04 | disposition home or self-care (01) ==
LOC: D.ER 11:19
PROVIDERS: Family Medicine
DX: R10.9 Unspecified abdominal pain (principal); R06.02 Shortness of breath; R06.2 Wheezing; Z86.73 Personal history of transient ischemic attack (TIA), and cerebral infarction without residual deficits; I25.2 Old myocardial infarction; E11.40 Type 2 diabetes mellitus with diabetic neuropathy, unspecified; Z79.4 Long term (current) use of insulin; I10 Essential (primary) hypertension; J44.9 Chronic obstructive pulmonary disease, unspecified; K21.9 Gastro-esophageal reflux disease without esophagitis; Z72.0 Tobacco use

== ENCOUNTER 2020-03-26 19:00 | Outpatient (CLI) | payer MEDICARE ==
[2020-02-20 11:39] VITALS: BMI 37.8
[~2020-03-26 19:00] MED LIST changes: +ACETAMINOPHEN500 M1 PO; +BREO ELLIPTA 11 EACH INH; +HUMALOG 30100 UNITS/ SC
== END 2020-03-26 23:59 | disposition home or self-care (01) ==
LOC: D.MAMMO 19:00
PROVIDERS: ATTEND Family Medicine
DX: Z12.31 Encounter for screening mammogram for malignant neoplasm of breast (principal)

== ENCOUNTER 2021-03-21 12:50 | Inpatient (IN) | payer MEDICARE ==
[~2021-03-21] VITALS: Ht 162.6 cm; Wt 98.0 kg
[2021-03-21 14:36] LABS: BASOPHILS 0.5 % (0-2); EOSINOPHILS 6.9 % (0-7); HEMATOCRIT 39.6 % (36.0-48.0); HEMOGLOBIN 12.9 g/dL (12-16); LYMPHOCYTES 15.9 % (15-50); MCH 26.3 pg (26.0-34.0); MCHC 32.6 g/dL (31.0-37.0); MCV 80.7 fL (80.0-100.0); MEAN PLATELET VOLUME 8.2 fL (7.4-10.4); MONOCYTES 8.6 % (2-11); NEUTROPHILS 68.1 % (40-80); RBC 4.91 10x6/uL (4.00-5.40); RDW 25.3 % (11.5-14.5); WBC 10.4 10x3/uL (4.8-10.8)
[2021-03-21 14:39] LABS: PLATELET COUNT 279 10x3/uL (130-400)
[2021-03-21 14:48] LABS: ANION GAP 11.8 mmol/L (8-16); CALCIUM 9.5 mg/dL (8.5-10.1); CARBON DIOXIDE 29.4 mmol/L (21.0-32.0); CREATININE - SERUM 0.9 mg/dL (0.6-1.3); POTASSIUM - SERUM 4.2 mmol/L (3.5-5.1)
[2021-03-21 15:04] LABS: ALBUMIN 3.3 g/dL (3.4-5.0); BILIRUBIN - TOTAL 0.31 mg/dL (0.2-1.3); MAGNESIUM - SERUM 2.4 mg/dL (1.8-2.4); PROTEIN - SERUM 7.7 g/dL (6.4-8.2); THYROID STIMULATING HORMONE 1.49 uIU/mL (0.36-3.74)
[2021-03-21 15:36] LABS: BILIRUBIN NEGATIVE (NEGATIVE); KETONE NEGATIVE (NEGATIVE); NITRITE NEGATIVE (NEGATIVE); UROBILINOGEN NORMAL mg/dL (< 2)
[2021-03-21 15:38] LABS: BACTERIA MODERATE HPF (NONE SEEN); SQUAMOUS EPITHELIAL 0-5 HPF (0-4)
[2021-03-21 15:39] LABS: UDS - AMPHET NEGATIVE QUAL (NEGATIVE); UDS - BARB NEGATIVE QUAL (NEGATIVE); UDS - BENZO NEGATIVE QUAL (NEGATIVE); UDS - COCAINE NEGATIVE QUAL (NEGATIVE); UDS - OPIATE POSITIVE QUAL (NEGATIVE); UDS - PCP NEGATIVE QUAL (NEGATIVE); UDS - THC NEGATIVE QUAL (NEGATIVE)
[2021-03-21 22:41] VITALS: BP 136/60; Ht 162.6 cm; Wt 98.0 kg
--- NOTE | 2021-03-22 03:01 | NUR ---
PATIENT DENIED PAIN, SHE ATE WELL, AND APPEARS TO BE RESTING IN BED WITH HER EYES CLOSED. ADILIA ALARM IN PLACE.
[2021-03-22 08:48] VITALS: BP 94/49
[2021-03-22 09:02] LABS: CHOL - HDL RATIO 4.2 ratio (2.3-4.1); LDL-HDL RATIO 1.7 ratio (1.5-3.5)
[2021-03-22 11:56] VITALS: BP 149/63
--- NOTE | 2021-03-22 15:20 | NUR ---
I have reviewed this patient and I concur with the Shift Assessment completed by the Licensed Practical Nurse today this shift.
[2021-03-22 16:54] VITALS: BP 142/72
[2021-03-22 20:00] VITALS: BP 139/26
[2021-03-23 09:04] VITALS: BP 132/67; BP 164/74
[2021-03-23 13:56] VITALS: BP 131/63
[2021-03-23 14:04] LABS: BASOPHILS 0.5 % (0-2); EOSINOPHILS 4.3 % (0-7); HEMATOCRIT 37.8 % (36.0-48.0); LYMPHOCYTES 14.1 % (15-50); MCHC 31.8 g/dL (31.0-37.0); MCV 81.6 fL (80.0-100.0); MEAN PLATELET VOLUME 7.2 fL (7.4-10.4); MONOCYTES 6.5 % (2-11); NEUTROPHILS 74.6 % (40-80); PLATELET COUNT 246 10x3/uL (130-400); RBC 4.64 10x6/uL (4.00-5.40); RDW 23.8 % (11.5-14.5); WBC 8.3 10x3/uL (4.8-10.8)
[2021-03-23 18:30] VITALS: BP 114/65
[2021-03-23 20:00] VITALS: BP 104/56
--- NOTE | 2021-03-24 00:01 | NUR ---
RESTING QUEITLY WITH NO DISTRESS NOTED. CL IN REACH
[2021-03-24 05:00] VITALS: BP 107/50
--- NOTE | 2021-03-24 07:45 | NUR ---
PT LAYING ON RIGHT SIDE. EASILY AWAKENED. CL IN REACH. NO NEEDS AT THIS TIME. STATES PAIN IS A 8 OUT OF 10 ON THE PAIN SCALE. WCTM
[2021-03-24] MEDS ORDERED: ZETIA10 MG PO (09:30)
[2021-03-24] MEDS ORDERED: LISINOPRIL5 MG PO (09:30)
[2021-03-24] MEDS ORDERED: GABAPENTIN100 MG PO (09:31)
[2021-03-24 10:03] VITALS: BP 147/69
--- NOTE | 2021-03-24 11:26 | MORECARE ---
CASE MANAGEMENT DISCHARGE SUMMARY PATIENT: ASAD CHO UNIT: [id number] ADM DATE: 03/22/21 AGE: 55 : 64 SEX: F ROOM/BED: D.2212 AUTHOR: JILLIAN,DOC PHYSICIAN: REFERRING PHYSICIAN: BERT DICKINSON MD DATE OF SERVICE: 03/24/21 Case Management Discharge Planning Summary COMMENTS ENTERED DATE: 03/24/21 11:21 CT COMMENT TYPE: Discharge Planning REVIEWER: Keyona Holley CM spoke with patient to complete discharge plan and discuss needs. Patient states she lives at home alone but has support from her nondenominational members. Her public safety teacher or "another friend from nondenominational" will provide transportation after her discharge. She currently has home O2 provided by [employer] and would like to resume services. Patient states she is independent with all ADLs and uses a cane and walker as needed while ambulating. Pt continues to be lethargic but stated she feels that she is safe for discharge. CM called [facility] with notification of discharge and spoke with Mary. CM will continue to follow and assist as needed. DCP REVIEW SUMMARY ANTICIPATED D/C DATE: EXPECTED LOS : CASE STATUS: DCP Initiated INITIAL REVIEW: 03/21/2021 INITIAL REVIEWER: Keyona Holley FINAL DISCHARGE DISPOSITION: : FINAL REVIEWER: FINAL REVIEW DATE: DCP Focus Questions & Answers QUESTION: ANSWER : PATIENT: ASAD CHO ENCOUNTER: [id number] MEDICAL RECORD#: [id number] ADMISSION DATE: 03/22/2021 DISCHARGE DATE: ATTENDING MD: BERT LINARES : AGE: 55 MARITAL STATUS: D DC PLAN ID: [id number] FACILITY: [facility] PRINTED ON: 03/24/21 11:26 CT All edits/amendments must be made on the electronic document DICTATION DATE: 03/24/211125 MACADAM RAKER: GET 03/24/21 112 RPT#: [id number] DC DATE: STATUS: ADM IN [facility] [address] [place] [address] END OF REPORT
--- NOTE | 2021-03-24 11:37 | MORECARE ---
CASE MANAGEMENT DISCHARGE SUMMARY PATIENT: ASAD CHO UNIT: [id number] ADM DATE: 03/22/21 AGE: 55 : 63 SEX: F ROOM/BED: D.2212 AUTHOR: JILLIANDOC PHYSICIAN: REFERRING PHYSICIAN: BERT DICKINSON MD DATE OF SERVICE: 03/24/21 Case Management Discharge Planning Summary COMMENTS ENTERED DATE: 03/24/21 11:21 CT COMMENT TYPE: Discharge Planning REVIEWER: Keyona Holley CM spoke with patient to complete discharge plan and discuss needs. Patient states she lives at home alone but has support from her advent members. Her finisher card tender or "another friend from advent" will provide transportation after her discharge. She currently has home O2 provided by [employer] and would like to resume services. Patient states she is independent with all ADLs and uses a cane and walker as needed while ambulating. Pt continues to be lethargic but stated she feels that she is safe for discharge. CM called [facility] with notification of discharge and spoke with Mary. CM will continue to follow and assist as needed. DCP REVIEW SUMMARY ANTICIPATED D/C DATE: EXPECTED LOS : CASE STATUS: DCP Initiated INITIAL REVIEW: 03/21/2021 INITIAL REVIEWER: Keyona Holley FINAL DISCHARGE DISPOSITION: : FINAL REVIEWER: FINAL REVIEW DATE: DCP Focus Questions & Answers DCP Screen QUESTION: ANSWER High Risk Factors: : High risk meds DCP Evaluation QUESTION: ANSWER Patient and/or caregiver agree upon recommended discharge plan? : Yes Family / Caregiver's ability to cope with chronic illness: : a. Adequate (ability to meet patient's medical needs, ensures patient attends medical appts.) Patient's current cognitive status: : Lethargic Patient's current cognitive status: : *Oriented to person, place, situation, time and present Patient's ability to cope with chronic illness : d. No chronic illness Does the patient have the ability to pay for or attain post discharge needs / services? : Yes Functional screen assessment: : Basic needs can adequately be met by self Physical Status: : Independent with ADL's Equipment needed for post hospitalization: : None Is there a likelihood that the patient will require additional services to return to the preadmission environment? : No Functional screen comments: : Pt states she is independent with all ADLs. Living Arrangements: : Home Alone with Support Partial Dependence, assistance required for: : Ambulation / Mobility Results of this evaluation have been discussed with: : Patient Patient with capacity for self-care or can be cared for in same environment as prior to hospitalization? : Yes Living arrangements comments: : Patient states she lives alone but has support from advent members and finisher card tender Baseline cognitive status: : Lethargic Baseline cognitive status: : *Oriented to person, place, situation, time and present Medication Management: : Patient states can afford medications Planned post hospital services available for patient? : Yes Does Patient have transportation to get home and to follow-up medical appointments when discharged from the hospital? : Yes Comments: : Pt states she does have transportation to pick up operator medications. Would patient like to participate in any Care Coordination programs (if applicable): : Not applicable Does the patient have electricity at home? : Yes Does the patient have running water in their house? : Yes Equipment in use: : Walker - Standard Equipment in use: : Home Oxygen via Mask Equipment in use: : Cane - Quad Equipment agency name and contact information: : [employer] Mental health screen: : No mental health history DCP Re-evaluation QUESTION: ANSWER Would patient like to participate in any Care Coordination programs (if applicable): : Not applicable PATIENT: ASAD CHO ENCOUNTER: [id number] MEDICAL RECORD#: [id number] ADMISSION DATE: 03/22/2021 DISCHARGE DATE: ATTENDING MD: BERT LINARES : AGE: 55 MARITAL STATUS: D DC PLAN ID: [id number] FACILITY: [facility] PRINTED ON: 03/24/21 11:36 CT All edits/amendments must be made on the electronic document DICTATION DATE: 03/24/211135 RN LONG TERM CARE: DM 03/24/21 113 RPT#: [id number] DC DATE: STATUS: ADM IN [facility] [address] [place] [address] END OF REPORT
[2021-03-24 12:04] VITALS: BP 109/59
--- NOTE | 2021-03-24 13:27 | NUR ---
IV THERAPY REMOVED FROM RIGHT [facility]. DISCHARGE ORDERS GIVEN AND PT VERBALIZED UNDERSTANDING. REPEATED THE FACT THAT SHE NEEDS TO STOP TAKING FLEXERIL, TYLENOL AND MOTRIN. VOICED UNDERSTANDING THAT SHE NEEDS TO CUT BACK ON THE NORCO 5'S TO TAKE ONE EVERY 8 HOURS. PT VOICED UNDERSTANDING. THERE WAS A SMALL MISUNDERSTANDING PT HAD TOLD ME THAT HER RIDE WAS NOT HERE YET. SO I SAID WE WOULD DO THE PAPERWORK AFTER I GOT A BITE TO EAT WELL SHE WAS EATING LUNCH. PT STATED THAT WAS FINE. PT RIDE CALLED I WAS GOING INTO ROOM. RIDE STATED THAT THEY WERE TOLD I SAID THAT CAN WAIT UNTIL AFTER I ATE. I WOULD HAVE DISCHARGED THE PT IF I WOULD HAVE BEEN AWARE THE RIDE WAS HERE.
--- NOTE | 2021-03-24 13:48 | MORECARE ---
CASE MANAGEMENT DISCHARGE SUMMARY PATIENT: ASAD CHO UNIT: [id number] ADM DATE: 03/22/21 AGE: 55 : 63 SEX: F ROOM/BED: D.2212 AUTHOR: JILLIANDOC PHYSICIAN: REFERRING PHYSICIAN: BERT DICKINSON MD DATE OF SERVICE: 03/24/21 Case Management Discharge Planning Summary COMMENTS ENTERED DATE: 03/24/21 11:21 CT COMMENT TYPE: Discharge Planning REVIEWER: Keyona Holley CM spoke with patient to complete discharge plan and discuss needs. Patient states she lives at home alone but has support from her yazdanism members. Her music therapy teacher or "another friend from yazdanism" will provide transportation after her discharge. She currently has home O2 provided by [employer] and would like to resume services. Patient states she is independent with all ADLs and uses a cane and walker as needed while ambulating. Pt continues to be lethargic but stated she feels that she is safe for discharge. CM called [facility] with notification of discharge and spoke with Mary. CM will continue to follow and assist as needed. DCP REVIEW SUMMARY ANTICIPATED D/C DATE: EXPECTED LOS : CASE STATUS: DCP Initiated INITIAL REVIEW: 03/21/2021 INITIAL REVIEWER: Keyona Holley FINAL DISCHARGE DISPOSITION: : FINAL REVIEWER: FINAL REVIEW DATE: DCP Focus Questions & Answers DCP Screen QUESTION: ANSWER High Risk Factors: : High risk meds DCP Evaluation QUESTION: ANSWER Family / Caregiver's ability to cope with chronic illness: : a. Adequate (ability to meet patient's medical needs, ensures patient attends medical appts.) Patient's ability to cope with chronic illness : d. No chronic illness Patient's current cognitive status: : *Oriented to person, place, situation, time and present Patient's current cognitive status: : Lethargic Patient and/or caregiver agree upon recommended discharge plan? : Yes Physical Status: : Independent with ADL's Functional screen assessment: : Basic needs can adequately be met by self Does the patient have the ability to pay for or attain post discharge needs / services? : Yes Partial Dependence, assistance required for: : Ambulation / Mobility Living Arrangements: : Home Alone with Support Is there a likelihood that the patient will require additional services to return to the preadmission environment? : No Equipment needed for post hospitalization: : None Functional screen comments: : Pt states she is independent with all ADLs. Living arrangements comments: : Patient states she lives alone but has support from yazdanism members and music therapy teacher Baseline cognitive status: : *Oriented to person, place, situation, time and present Baseline cognitive status: : Lethargic Patient with capacity for self-care or can be cared for in same environment as prior to hospitalization? : Yes Results of this evaluation have been discussed with: : Patient Medication Management: : Patient states can afford medications Planned post hospital services available for patient? : Yes Does Patient have transportation to get home and to follow-up medical appointments when discharged from the hospital? : Yes Would patient like to participate in any Care Coordination programs (if applicable): : Not applicable Comments: : Pt states she does have transportation to bean picker medications. Does the patient have electricity at home? : Yes Does the patient have running water in their house? : Yes Equipment in use: : Cane - Quad Equipment in use: : Home Oxygen via Mask Equipment in use: : Walker - Standard Equipment agency name and contact information: : [employer] Mental health screen: : No mental health history DCP Re-evaluation QUESTION: ANSWER Would patient like to participate in any Care Coordination programs (if applicable): : Not applicable PATIENT: ASAD CHO ENCOUNTER: [id number] MEDICAL RECORD#: [id number] ADMISSION DATE: 03/22/2021 DISCHARGE DATE: 03/24/2021 ATTENDING MD: BERT LINARES : 1965-Keith-16 AGE: 55 MARITAL STATUS: D DC PLAN ID: [id number] FACILITY: [facility] PRINTED ON: 03/24/21 13:48 CT All edits/amendments must be made on the electronic document DICTATION DATE: 03/24/211347 STUDENT ASSISTANCE COUNSELOR: DM 03/24/21 1348 RPT#: [id number] DC DATE:03/24/21 STATUS: DIS IN [facility] [address] [place] [address] END OF REPORT
== END 2021-03-24 13:39 | disposition home or self-care (01) | DRG 918 ==
LOC: D.ER 12:50 → D.MS 17:06 → OBSVTIME 17:06 → D.MS 17:06
PROVIDERS: Emergency Medicine; Psychiatry & Neurology Psychiatry; ADMIT Family Medicine; ATTEND Family Medicine
DX: T40.601A Poisoning by unspecified narcotics, accidental (unintentional), initial encounter (principal); F32.9 Major depressive disorder, single episode, unspecified; J44.9 Chronic obstructive pulmonary disease, unspecified; F25.9 Schizoaffective disorder, unspecified; I25.10 Atherosclerotic heart disease of native coronary artery without angina pectoris; K59.09 Other constipation; E78.5 Hyperlipidemia, unspecified; E66.9 Obesity, unspecified; I10 Essential (primary) hypertension; M19.90 Unspecified osteoarthritis, unspecified site; Z68.36 Body mass index [BMI] 36.0-36.9, adult; E11.9 Type 2 diabetes mellitus without complications; Z79.4 Long term (current) use of insulin; J42 Unspecified chronic bronchitis; N32.81 Overactive bladder; K21.9 Gastro-esophageal reflux disease without esophagitis